=== PATIENT | female | born 1990 | race Two or more races ===

== ENCOUNTER 2019-09-30 11:17 | Outpatient (CLI) | payer MEDICAID | END 2019-09-30 11:18 | disposition home or self-care (01) | LOC: LAB 11:17 | PROVIDERS: ATTEND Midwife | DX: O98.419 Viral hepatitis complicating pregnancy, unspecified trimester (principal); Z3A.00 Weeks of gestation of pregnancy not specified | CPT/HCPCS: 36415; 86317 ==

== ENCOUNTER 2019-10-14 11:33 | Outpatient (CLI) | payer MEDICAID | END 2019-10-14 11:34 | disposition home or self-care (01) | LOC: LAB 11:33 | PROVIDERS: ATTEND Midwife | DX: O98.419 Viral hepatitis complicating pregnancy, unspecified trimester (principal); Z3A.00 Weeks of gestation of pregnancy not specified | CPT/HCPCS: 81599; 87517 ==

== ENCOUNTER 2019-12-02 09:00 | Outpatient (CLI) | payer MEDICAID ==
--- NOTE | 2019-12-02 11:08 | Ultrasound Report ---
Reason: F/U FOR LOW LYING PLACENTA AT 20 WKS Procedure Date: 12/02/2019 Accession Number: [id number] / [id number] Procedure: US - OB F/U or Repeat CPT Code: Final Report FULL RESULT: EXAM: FOLLOW-UP OBSTETRICAL ULTRASOUND EXAM DATE: 12/02/2019 09:16 AM. CLINICAL HISTORY: Low-lying placenta at 20 weeks, follow-up imaging. COMPARISON: None. TECHNIQUE: Real-time sonographic evaluation of the fetus performed by the banquet steward. Multiple circulation representative static images were saved for review. DATING: Established EGA 35 weeks 3 days with VITA 01/03/2020 based on working due date. GENERAL EVALUATION [place] . Cardiac activity: 136 bpm. movement: Visualized. Presentation: Cephalic. Placenta: Posterior and to the right position. Amniotic fluid: Normal. VINH 8.2 cm. MVP 3.1 cm. MATERNAL STRUCTURES While overall evaluation of the placenta is somewhat limited by the advanced gestational age, the margin of the placenta is clearly multiple centimeters away from the endocervical os, on real-time imaging estimated to be at least 10 cm distance. IMPRESSION: 1. Whitaker live intrauterine with gestational age 35 weeks 3 days based on working due date. 2. Normally positioned posterior placenta to the right. No sonographic evidence of marginal placenta or placenta previa. RADIA
== END 2019-12-02 09:01 | disposition home or self-care (01) ==
LOC: DI 09:00
PROVIDERS: ATTEND Midwife
DX: O44.43 Low lying placenta NOS or without hemorrhage, third trimester (principal)
CPT/HCPCS: 76816

== ENCOUNTER 2020-08-30 15:23 | Emergency (ER) | payer MEDICAID ==
--- NOTE | 2020-08-30 15:40 | ED Physician Documentation ---
PD HPI FEMALE - Stated complaint Stated Complaint: FEMALE - Chief complaint Chief Complaint: Abd Pain - History obtained from History obtained from: Patient - History of Present Illness Timing - onset: How many days ago (1-2 days of some vaginal spotting, teaspoon amount or so a few times. Started with lower abd/RLQ pelvic cramping today.) Timing - duration: Days Timing - details: Abrupt onset, Intermittant Associated symptoms: Vaginal bleeding (spotting for couple days). No: Fever, Vaginal discharge, Dysuria Contributing factors: (home preg test positive. LMP 5w4d ago.), Sexually active. 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 denies: Nausea, Vomiting, Diarrhea : reports: Vaginal bleeding, Now EGA (5w4d by dates of LMP). denies: Dysuria, Frequency, Discharge Musculoskeletal: denies: Back pain Neurologic: denies: Generalized weakness, Near syncope PD PAST MEDICAL HISTORY - Past Medical History Past Medical History: No - Allergies Allergies/Adverse Reactions: Allergies Allergy/AdvReac Type Severity Reaction Status Date / Time No Known Drug Allergies Allergy Verified 08/30/20 15:34 PD ED PE NORMAL - Vitals Vital signs reviewed: Yes - General General: Alert and oriented X 3, No acute distress, Well developed/nourished - Cardiac Cardiac: RRR, No murmur - Respiratory Respiratory: Clear bilaterally - Abdomen Abdomen: Normal bowel sounds, Soft, Non distended, No organomegaly, Other (some tenderness without guarding RLQ and suprapubic area. No percussion tenderness. ) - Female Female : Deferred - Back Back: No CVA TTP - Derm Derm: Normal color, Warm and dry - Neuro Neuro: Alert and oriented X 3, No motor deficit, Normal speech Results - Vitals Vitals: Vital Signs - 24 hr 08/30/20 08/30/20 08/30/20 15:30 17:34 19:00 Temperature 36.8 C Heart Rate 91 60 66 Respiratory 18 19 19 Rate Blood Pressure 119/66 108/64 108/73 O2 Saturation 100 100 100 08/30/20 20:15 Temperature 36.8 C Heart Rate 80 Respiratory 18 Rate Blood Pressure 110/60 O2 Saturation 99 Oxygen O2 Source Room air - Labs Labs: Laboratory Tests 08/30/20 08/30/20 08/30/20 15:40 16:22 16:22 WBC 5.2 RBC 4.49 Hgb 13.7 Hct 40.2 MCV 89.5 MCH 30.5 MCHC 34.1 RDW 12.8 Plt Count 203 MPV 9.9 Neut # (Auto) 3.5 Lymph # (Auto) 1.3 L [place] # (Auto) 0.4 Eos # (Auto) 0.1 Baso # (Auto) 0.0 Absolute Nucleated RBC 0.00 Nucleated RBC % 0.0 HCG, Quant Urine Color YELLOW Urine Clarity CLEAR Urine pH 7.0 Ur Specific [place] 1.015 Urine Protein NEGATIVE Urine Glucose (UA) NEGATIVE Urine Ketones NEGATIVE Urine Occult Blood NEGATIVE Urine Nitrite NEGATIVE Urine Bilirubin NEGATIVE Urine Urobilinogen 0.2 (NORMAL) Ur Leukocyte Esterase NEGATIVE Ur Microscopic Review NOT INDICATED Urine Culture Comments NOT INDICATED Blood Type A POSITIVE 08/30/20 16:22 WBC RBC Hgb Hct MCV MCH MCHC RDW Plt Count MPV Neut # (Auto) Lymph # (Auto) [place] # (Auto) Eos # (Auto) Baso # (Auto) Absolute Nucleated RBC Nucleated RBC % HCG, Quant 1948.00 Urine Color Urine Clarity Urine pH Ur Specific [place] Urine Protein Urine Glucose (UA) Urine Ketones Urine Occult Blood Urine Nitrite Urine Bilirubin Urine Urobilinogen Ur Leukocyte Esterase Ur Microscopic Review Urine Culture Comments Blood Type PD MEDICAL DECISION MAKING - ED course Complexity details: reviewed results (U/S showing no IUP and adnexal mass most concerning for ectopic . Will get DISABILITIES CAREGIVER consultation.), re-evaluated patient, considered differential (early with spotting and now also RLQ/low abd pain. Will get U/S to ensure IUP and eval for pelvic bleeding.), d/w patient, d/w group segment consultant (Dr. Le to come to ED and talk with patient. ) Departure - Departure Disposition: 01 Home, Self Care Clinical Impression: Ectopic without intrauterine Condition: Stable Record reviewed to determine appropriate education?: Yes Instructions: ED Abdominal Pain Rule Out Ectopic Comments: Your is very early. At this point in time, your hormone level is appropriate for your stage of , but no is visible within the uterus. There is a complex tissue mass near the your right ovary that is concerning for a possible ectopic , but it is not entirely clear whether this is truly an ectopic or not. It is possible that this is a complex ovarian cyst, possibly related to the , and that your is in the uterus but just too early to see at this time. As such, you will need to follow-up with your hydrometer finisher, as you have discussed with Dr. Le, our on- call petroleum inspector sushila. You should see Kimberly Morrell at [facility] In 2 days for a repeat hormone level check. Please call first thing tomorrow to set up this appointment. If you develop severe pain, heavy bleeding, or fainting/near-fainting, you should return to the emergency department without delay. Discharge Date/Time: 08/30/20 20:15
[2020-08-30] MEDS ORDERED: KETOROLAC 15 MG/ML VIAL IVP STA (15:55)
[2020-08-30] MEDS ORDERED: KETOROLAC 30 MG/ML VIAL IVP STA (15:58)
[2020-08-30] MEDS ORDERED: SODIUM CHLORIDE 0.9% 1,000 ML IV STA (16:00)
[2020-08-30 16:25] LABS: BILIRUBIN,URINE NEGATIVE (NEGATIVE); GLUCOSE, URINE (UA) NEGATIVE (NEGATIVE); KETONES,URINE (UA) NEGATIVE (NEGATIVE); LEUKOCYTE ESTERASE, URINE NEGATIVE (NEGATIVE); NITRITE,URINE NEGATIVE (NEGATIVE); OCCULT BLOOD,URINE NEGATIVE (NEGATIVE); PROTEIN,URINE NEGATIVE (NEGATIVE); UROBILINOGEN,URINE 0.2 (NORMAL) E.U./dL (NORMAL)
[2020-08-30 16:27] LABS: CLARITY,URINE CLEAR (CLEAR)
[2020-08-30 16:33] LABS: BASOPHILS % (AUTO) 0.6 %; EOSINOPHILS # (AUTO) 0.1 10^3/uL (0.0-0.7); EOSINOPHILS % (AUTO) 1.1 %; HGB - HEMOGLOBIN 13.7 g/dL (12.0-16.0); LYMPHOCYTES # (AUTO) 1.3 10^3/uL (1.5-3.5); LYMPHOCYTES % (AUTO) 24.1 %; MEAN CORPUSCULAR HEMOGLOBIN 30.5 pg (27.0-31.0); MEAN CORPUSCULAR HGB CONC 34.1 g/dL (32.0-36.0); MEAN CORPUSCULAR VOLUME 89.5 fL (81.0-99.0); MEAN PLATELET VOLUME 9.9 fL (7.9-10.8); MONOCYTES # (AUTO) 0.4 10^3/uL (0.0-1.0); MONOCYTES % (AUTO) 6.7 %; NEUTROPHILS # (AUTO) 3.5 10^3/uL (1.5-6.6); NEUTROPHILS % (AUTO) 67.1 %; PLT - PLATELET COUNT 203 10^3/uL (130-450); RED BLOOD COUNT 4.49 10^6/uL (4.20-5.40); RED CELL DISTRIBUTION WIDTH 12.8 % (12.0-15.0); WHITE BLOOD COUNT 5.2 x10^3/uL (4.8-10.8)
--- NOTE | 2020-08-30 19:30 | Ultrasound Report ---
PROCEDURE: OB First Trimester INDICATIONS: early ; RLQ abd pain OUTSIDE/PRIOR DATING DATA: Last menstrual period (LMP): 07/22/2020. LMP-based estimated date of delivery (VITA): 04/28/2021. First dating scan (date and location): 08/30/2020. Estimated date of delivery (VITA) from first dating scan: Not applicable. TECHNIQUE: Real-time scanning was performed of the fetus and maternal pelvic organs, with image documentation. COMPARISON: None. FINDINGS: No intrauterine gestational sac visualized. Quantitative hCG level measured 1947. No decidual reactio n noted. Small nabothian cyst visualized near the cervix. Small amount of endometrial fluid noted danii r the fundus. There are 2 complex cysts versus mass noted in the right ovary/adnexa. Ring of fire appearance surrou nding this finding. Left ovary is unremarkable in appearance. Visualized portions of the bilateral kidneys appear unremarkable without hydronephrosis. Trace amount of free fluid in the posterior cul-de-sac. No sonographic evidence of hemoperitoneum. IMPRESSION: Two complicated cysts versus mass noted in the right ovary/adnexa which may represent a corpus luteal cyst versus ectopic . No sonographic evidence to suggest rupture at this time. Borderline b eta hCG level to expect visualization of an intrauterine gestational sac. An early normal intrauterin e gestation cannot be completely excluded. Recommend continued clinical surveillance and serial quantitative hCG measurements to document expect ed rate of rise. Short interval follow-up imaging as needed. Findings were discussed with Dr. Carmona of the emergency Department staff at 1915 hours . Reviewed by: Ish Nur MD on 08/30/2020 7:29 PM PST Approved by: Ish Nur MD on 08/30/2020 7:29 PM PST Station ID: [id number]
--- NOTE | 2020-08-30 19:31 | Ultrasound Report ---
PROCEDURE: OB Transvaginal INDICATIONS: RLQ pain and vag bleeding. 5.4 wks preg OUTSIDE/PRIOR DATING DATA: Last menstrual period (LMP): 07/22/2020. LMP-based estimated date of delivery (VITA): 04/28/2021. First dating scan (date and location): 08/30/2020. Estimated date of delivery (VITA) from first dating scan: Not applicable. TECHNIQUE: Real-time transvaginal scanning was performed of the fetus and maternal pelvic organs, with image doc umentation. COMPARISON: None. FINDINGS: No intrauterine gestational sac visualized. Quantitative hCG level measured 1947. No decidual reactio n noted. Small nabothian cyst visualized near the cervix. Small amount of endometrial fluid noted danii r the fundus. There are 2 complex cysts versus mass noted in the right ovary/adnexa. Ring of fire appearance surrou nding this finding. Left ovary is unremarkable in appearance. Visualized portions of the bilateral kidneys appear unremarkable without hydronephrosis. Trace amount of free fluid in the posterior cul-de-sac. No sonographic evidence of hemoperitoneum. IMPRESSION: Two complicated cysts versus mass noted in the right ovary/adnexa which may represent a corpus luteal cyst versus ectopic . No sonographic evidence to suggest rupture at this time. Borderline b eta hCG level to expect visualization of an intrauterine gestational sac. An early normal intrauterin e gestation cannot be completely excluded. Recommend continued clinical surveillance and serial quantitative hCG measurements to document expect ed rate of rise. Short interval follow-up imaging as needed. Findings were discussed with Dr. Carmona of the emergency Department staff at 1915 hours . Reviewed by: Ish Nur MD on 08/30/2020 7:29 PM PST Approved by: Ish Nur MD on 08/30/2020 7:29 PM PST Station ID: [id number]
--- NOTE | 2020-08-30 20:14 | CONSULTATION NOTE ---
Referring Provider Name of Referring Provider:: Dr. Carmona Consult Date: 08/30/20 Chief Complaint - Chief Complaint Chief Complaint: of unknown location History of Present Illness - History Obtained From History obtained from: Patient and outside provider - History of Present Illness HPI Comment/Other: Patient is a 30 yo at 5w4d by LMP here with positive test and crmaping/spotting Patient is followed by [facility]. She is about 8 months s/p . She has a positive test and was having some spotting and mild cramping. No N/V. No active symptoms at present. Desired . LMP 07/22/2020 gives VITA 04/28/2020 HCG was 1948. Pelvic us was performed. No clear IUP was noted. There are two complex masses on the right ovary/adnexa that were read as possible corpus luteum cyst vs possible ectopic. Conclusion states that IUP canot be ruled out. PMH: s/f hepatitic C no medications. 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 Exam - Vital Signs Reviewed Vital Signs: Yes Vital Signs: Vital Signs x48h Temp Pulse Resp BP Pulse Ox 08/30/20 19:00 66 19 108/73 100 08/30/20 17:34 60 19 108/64 100 08/30/20 15:30 98.2 F 91 18 119/66 100 - Physical Exam General Appearance: positive: No acute distress Respiratory: positive: No respiratory distress Cardiovascular: positive: Other (RR) Peripheral Pulses: positive: 2+ Abdomen: positive: Non-tender, No distention, Other (soft, NT/ND. No guarding) Skin: positive: Color nml Extremities: positive: Non-tender, No pedal edema Neurologic/Psychiatric: positive: Oriented x3 Conclusion/Plan - Diagnosis Diagnosis: of unknown locations cannot rule out ectopic - Plan Plan: We had an extensive discussion regarding the us findings and HCG levels. Our primary concern is ectopic . Reviewed that ectopic pregnancies are not viable and can be life threatening to the patient. If caught early, they can be managed with methotrexate If caught later, certain characteristics of the may preclude medical management and surgery may be indicated If the fallopian tube should rupture, blood loss is rapid and high volume and can be potentially life threatening If were not desired, I would recommend methotrexate at this time. Patient declined as is desired. Recommend Q3day HCG levels and repeat us in one week. Patient is followed by [facility] and wants to follow with her provider at that facility. I called Kimberly Morrell CPM and reviewed patient scenario She has a benign presentation, HCG levels, US findings, and recommendations for follow-up Her outside provider has scheduled the patient for fu on Friday in their clinic for fu HCG levels We reviewed warning signs that warrant immediate return to the ED. Patient voiced understanding and her care plan has been confirmed with her primary OB provider. - Lab Results Fish Bones: 08/30/20 16:22
[2020-08-30 20:17] VITALS: BP 110/60
== END 2020-08-30 20:15 | disposition home or self-care (01) ==
LOC: ED 15:23
DX: O00.90 Unspecified ectopic pregnancy without intrauterine pregnancy (principal); Z3A.01 Less than 8 weeks gestation of pregnancy
CPT/HCPCS: 36415; 76801; 76817; 81001; 81003; 84702; 85025; 86900; 86901; 87086; 96374; 99284

== ENCOUNTER 2020-09-05 10:55 | Outpatient (CLI) | payer MEDICAID ==
--- NOTE | 2020-09-05 11:58 | Ultrasound Report ---
PROCEDURE: OB First Trimester w/TV INDICATIONS: 1ST TRIMESTER BLEEDING, DATING, VIABILITY OUTSIDE/PRIOR DATING DATA: Last menstrual period (LMP): 07/22/2020. LMP-based estimated date of delivery (VITA): 04/28/2021. First dating scan (date and location): 08/30/2020. Estimated date of delivery (VITA) from first dating scan: Not measured. See below. TECHNIQUE: Real-time scanning was performed of the fetus and maternal pelvic organs, with image documentation. Endovaginal scanning was also performed to better visualize the fetus and maternal ovaries. COMPARISON: 08/30/2020 FINDINGS: No intrauterine gestation is identified to include cardiac activity. No decidual reaction noted . Cervix appears closed. Nabothian cysts are again noted. Small amount of pelvic free fluid noted in the region of the right adnexa and posterior cul-de-sac. Maternal organs: The bilateral ovaries appear unremarkable. There is a collapsing right corpus luteal cyst measuring 2.2 x 1.6 x 1.7 cm. Previously seen possible second right ovarian/adnexal mass is no longer visualized. Limited images through the kidneys demonstrate no hydronephrosis. IMPRESSION: 1. No sonographic evidence for intrauterine gestation. 2. Collapsing 2.2 cm right corpus luteal cyst. Previously seen second right ovarian/adnexal mass is n o longer visualized. Given reported history of decreasing beta hCG levels and no expected progression of , findings may represent a missed spontaneous with ectopic much less likely. Recommend continued clinical and laboratory surveillance. Follow-up imaging as needed. Findings were reported to Mary Beth Ma by the cable maintainer at time of study completion. Reviewed by: Ish Nur MD on 09/05/2020 11:56 AM PST Approved by: Ish Nur MD on 09/05/2020 11:56 AM PST Station ID: [id number]
== END 2020-09-05 10:56 | disposition home or self-care (01) ==
LOC: DI 10:55
PROVIDERS: ATTEND Midwife
DX: N83.11 Corpus luteum cyst of right ovary (principal)
CPT/HCPCS: 76801; 76817

== ENCOUNTER 2020-09-17 14:46 | Day surgery (SDC) | payer MEDICAID ==
[2020-09-17] MEDS ORDERED: ONDANSETRON 4 MG/2 ML VIAL IVP STA (15:10)
[2020-09-17] MEDS ORDERED: HYDROmorphone 1 MG/ML CARPUJECT IVP STA ×3 (15:10→17:35)
--- NOTE | 2020-09-17 15:12 | ED Physician Documentation ---
PD HPI FEMALE - Stated complaint Stated Complaint: PELVIC PX - Chief complaint Chief Complaint: General - History obtained from History obtained from: Patient - Additional information Additional information: with recent presumed miscarriage. She was seen here on the for bleeding. She had an ultrasound at that time showing right adnexal mass which was concerning for an ectopic but subsequent ultrasound showed that that had resolved. No IUP was ever seen. Her beta-hCG on 30 August was 1948. She says she had it done at an outpatient clinic 2 days later and was around 1700. She was continuing to bleed but not heavy but over the last day has developed severe pelvic pain like a constant contraction associated with dysuria. Mild low back pain. No fever. She is nauseous. 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 : None HEENT: None Psych: None Musculoskeletal: None Derm: None - Past Surgical History Past Surgical History: No - Allergies Allergies/Adverse Reactions: Allergies Allergy/AdvReac Type Severity Reaction Status Date / Time No Known Drug Allergies Allergy Verified 08/30/20 15:34 - Social History Does the pt smoke?: No Smoking Status: Never smoker Does the pt drink ETOH?: No Does the pt have substance abuse?: No - Immunizations Immunizations are current?: Yes PD ED PE NORMAL - Vitals Vital signs reviewed: Yes - General General: Alert and oriented X 3 (She appears uncomfortable and in pain) - Abdomen Abdomen: Normal bowel sounds, Soft, Other (Tenderness in the central anterior pelvis without surgical signs) - Back Back: No CVA TTP, No spinal TTP - Derm Derm: Normal color, Warm and dry - Extremities Extremities: No edema, No calf tenderness / cord - Neuro Neuro: Alert and oriented X 3, Normal speech - Psych Psych: Normal mood, Normal affect Results - Vitals Vitals: Vital Signs - 24 hr 09/17/20 09/17/20 09/17/20 14:48 15:08 17:00 Temperature 36.9 C 36.9 C 37.4 C Heart Rate 106 H 106 H 85 Respiratory 20 20 20 Rate Blood Pressure 96/67 96/67 108/79 O2 Saturation 100 100 98 09/17/20 19:00 Temperature 36.6 C Heart Rate 80 Respiratory 22 Rate Blood Pressure 105/66 O2 Saturation 98 Oxygen O2 Source Room air - Labs Labs: Laboratory Tests 09/17/20 09/17/20 09/17/20 14:55 15:15 15:15 WBC 10.0 RBC 4.12 L Hgb 12.5 Hct 37.0 MCV 89.8 MCH 30.3 MCHC 33.8 RDW 12.8 Plt Count 209 MPV 9.3 Neut # (Auto) 9.2 H Lymph # (Auto) 0.5 L [place] # (Auto) 0.3 Eos # (Auto) 0.0 Baso # (Auto) 0.0 Absolute Nucleated RBC 0.00 Nucleated RBC % 0.0 Sodium Potassium Chloride Carbon Dioxide Anion Gap BUN Creatinine Estimated GFR (MDRD) Glucose Calcium Total Bilirubin AST ALT Alkaline Phosphatase Total Protein Albumin HCG, Quant Urine Color YELLOW Urine Clarity HAZY Urine pH 8.0 H Ur Specific [place] 1.025 Urine Protein NEGATIVE Urine Glucose (UA) NEGATIVE Urine Ketones 15 H Urine Occult Blood SMALL H Urine Nitrite NEGATIVE Urine Bilirubin NEGATIVE Urine Urobilinogen 2 H Ur Leukocyte Esterase NEGATIVE Urine RBC 6-10 H Urine WBC 0-3 Ur Squamous Epith Cells FEW Squamous Amorphous Sediment Few Urine Bacteria Few Ur Microscopic Review INDICATED Urine Culture Comments NOT INDICATED Nasal Adenovirus (PCR) Nasal B. parapertussis DNA (PCR) Nasal Coronavir 229E PCR Nasal Coronavir HKU1 PCR Nasal Coronavir NL63 PCR Nasal Coronavir OC43 PCR Nasal Enterovir/Rhinovir PCR Nasal Influenza B PCR Nasal Influenza A PCR Nasal Parainfluen 1 PCR Nasal Parainfluen 2 PCR Nasal Parainfluen 3 PCR Nasal Parainfluen 4 PCR Nasal RSV (PCR) Nasal B.pertussis DNA PCR Nasal C.pneumoniae (PCR) Adis Human Metapneumo PCR Nasal M.pneumoniae (PCR) Nasal SARS-CoV-2 (PCR) Blood Type A POSITIVE Antibody Screen NEGATIVE Crossmatch IS Only See Detail 09/17/20 09/17/20 09/17/20 15:15 15:15 15:15 WBC RBC Hgb Hct MCV MCH MCHC RDW Plt Count MPV Neut # (Auto) Lymph # (Auto) [place] # (Auto) Eos # (Auto) Baso # (Auto) Absolute Nucleated RBC Nucleated RBC % Sodium 136 Potassium 3.6 Chloride 101 Carbon Dioxide 24 Anion Gap 11.0 BUN 11 Creatinine 0.7 Estimated GFR (MDRD) 98 Glucose 131 H Calcium 9.2 Total Bilirubin 1.3 H AST 15 ALT 16 Alkaline Phosphatase 58 Total Protein 7.5 Albumin 4.7 HCG, Quant 1092.98 Urine Color Urine Clarity Urine pH Ur Specific [place] Urine Protein Urine Glucose (UA) Urine Ketones Urine Occult Blood Urine Nitrite Urine Bilirubin Urine Urobilinogen Ur Leukocyte Esterase Urine RBC Urine WBC Ur Squamous Epith Cells Amorphous Sediment Urine Bacteria Ur Microscopic Review Urine Culture Comments Nasal Adenovirus (PCR) Nasal B. parapertussis DNA (PCR) Nasal Coronavir 229E PCR Nasal Coronavir HKU1 PCR Nasal Coronavir NL63 PCR Nasal Coronavir OC43 PCR Nasal Enterovir/Rhinovir PCR Nasal Influenza B PCR Nasal Influenza A PCR Nasal Parainfluen 1 PCR Nasal Parainfluen 2 PCR Nasal Parainfluen 3 PCR Nasal Parainfluen 4 PCR Nasal RSV (PCR) Nasal B.pertussis DNA PCR Nasal C.pneumoniae (PCR) Adis Human Metapneumo PCR Nasal M.pneumoniae (PCR) Nasal SARS-CoV-2 (PCR) Blood Type Antibody Screen Crossmatch IS Only 09/17/20 18:45 WBC RBC Hgb Hct MCV MCH MCHC RDW Plt Count MPV Neut # (Auto) Lymph # (Auto) [place] # (Auto) Eos # (Auto) Baso # (Auto) Absolute Nucleated RBC Nucleated RBC % Sodium Potassium Chloride Carbon Dioxide Anion Gap BUN Creatinine Estimated GFR (MDRD) Glucose Calcium Total Bilirubin AST ALT Alkaline Phosphatase Total Protein Albumin HCG, Quant Urine Color Urine Clarity Urine pH Ur Specific [place] Urine Protein Urine Glucose (UA) Urine Ketones Urine Occult Blood Urine Nitrite Urine Bilirubin Urine Urobilinogen Ur Leukocyte Esterase Urine RBC Urine WBC Ur Squamous Epith Cells Amorphous Sediment Urine Bacteria Ur Microscopic Review Urine Culture Comments Nasal Adenovirus (PCR) NOT DETECTED Nasal B. parapertussis DNA (PCR) NOT DETECTED Nasal Coronavir 229E PCR NOT DETECTED Nasal Coronavir HKU1 PCR NOT DETECTED Nasal Coronavir NL63 PCR NOT DETECTED Nasal Coronavir OC43 PCR NOT DETECTED Nasal Enterovir/Rhinovir PCR NOT DETECTED Nasal Influenza B PCR NOT DETECTED Nasal Influenza A PCR NOT DETECTED Nasal Parainfluen 1 PCR NOT DETECTED Nasal Parainfluen 2 PCR NOT DETECTED Nasal Parainfluen 3 PCR NOT DETECTED Nasal Parainfluen 4 PCR NOT DETECTED Nasal RSV (PCR) NOT DETECTED Nasal B.pertussis DNA PCR NOT DETECTED Nasal C.pneumoniae (PCR) NOT DETECTED Adis Human Metapneumo PCR NOT DETECTED Nasal M.pneumoniae (PCR) NOT DETECTED Nasal SARS-CoV-2 (PCR) NOT DETECTED Blood Type Antibody Screen Crossmatch IS Only PD MEDICAL DECISION MAKING - ED course ED course: Given the very slow drop in the beta-hCG and the initial report on the ultrasound which demonstrated large ovaries and some free fluid I called the SERVICE LIAISON REPRESENTATIVE inbound sales consultant, Dr. Xavier who came and saw the patient and feels that this patient probably has a ruptured and slowly bleeding ectopic and plans to take her to the OR. Before the OR patient had a syncopal episode without injury in the bathroom. She was unconscious for a solid couple of minutes and was placed back in bed and in Trendelenburg and she came back around. IV fluids were done and transfer to the OR was expedited. Departure - Departure Disposition: ED Transfer to [facility] Clinical Impression: Ectopic without intrauterine Qualifiers: Location of ectopic : unspecified location Qualified Code(s): O00.90 - Unspecified ectopic without intrauterine Condition: Stable Discharge Date/Time: 09/17/20 19:18
[2020-09-17 15:27] LABS: BASOPHILS % (AUTO) 0.3 %; EOSINOPHILS % (AUTO) 0.1 %; HGB - HEMOGLOBIN 12.5 g/dL (12.0-16.0); LYMPHOCYTES # (AUTO) 0.5 10^3/uL (1.5-3.5); LYMPHOCYTES % (AUTO) 5.1 %; MEAN CORPUSCULAR HEMOGLOBIN 30.3 pg (27.0-31.0); MEAN CORPUSCULAR HGB CONC 33.8 g/dL (32.0-36.0); MEAN CORPUSCULAR VOLUME 89.8 fL (81.0-99.0); MEAN PLATELET VOLUME 9.3 fL (7.9-10.8); MONOCYTES # (AUTO) 0.3 10^3/uL (0.0-1.0); MONOCYTES % (AUTO) 2.5 %; NEUTROPHILS # (AUTO) 9.2 10^3/uL (1.5-6.6); NEUTROPHILS % (AUTO) 91.7 %; PLT - PLATELET COUNT 209 10^3/uL (130-450); RED BLOOD COUNT 4.12 10^6/uL (4.20-5.40); RED CELL DISTRIBUTION WIDTH 12.8 % (12.0-15.0)
[2020-09-17 15:35] LABS: CALCIUM 9.2 mg/dL (8.5-10.3); CREATININE 0.7 mg/dL (0.4-1.0)
[2020-09-17 15:57] LABS: BILIRUBIN,URINE NEGATIVE (NEGATIVE); GLUCOSE, URINE (UA) NEGATIVE (NEGATIVE); KETONES,URINE (UA) 15 mg/dL (NEGATIVE); LEUKOCYTE ESTERASE, URINE NEGATIVE (NEGATIVE); NITRITE,URINE NEGATIVE (NEGATIVE); OCCULT BLOOD,URINE SMALL (NEGATIVE); PROTEIN,URINE NEGATIVE (NEGATIVE); UROBILINOGEN,URINE 2 E.U./dL (NORMAL)
[2020-09-17 16:10] LABS: CLARITY,URINE HAZY (CLEAR)
[2020-09-17 16:31] LABS: AMORPHOUS SEDIMENT,UR Few /LPF; BACTERIA,URINE Few /HPF (None Seen); SQUAMOUS EPITHELIAL CELL,UR FEW Squamous (<= Few)
--- NOTE | 2020-09-17 17:42 | Ultrasound Report ---
PROCEDURE: OB First Trimester INDICATIONS: pelvic pain OUTSIDE/PRIOR DATING DATA: Last menstrual period (LMP): 07/22/2020. LMP-based estimated date of delivery (VITA): 04/28/2021. First dating scan (date and location): 08/30/2020. Estimated date of delivery (VITA) from first dating scan: Not applicable. TECHNIQUE: Real-time scanning was performed of the fetus and maternal pelvic organs, with image documentation. COMPARISON: 08/30/2020, 09/05/2020 FINDINGS: Embryo: No findings of an intrauterine can be seen. Measurement variability in dating: +/- 4 weeks by LMP, +/- 7 days by mean sac diameter (use before 6 weeks gestation if crown-rump length not able to be measured), +/- 5 days by crown-rump length (6-12 weeks gestation). Maternal organs: Both ovaries are enlarged, with heterogeneous components, right larger than left. Th e right ovary measures 8.4 x 7.4 x 8.7 cm. The left ovary measures 7 x 9.7 x 5.7 cm. A lower uterine segment nabothian cyst can be seen measuring 1.3 cm, with internal debris. Limited images through t he kidneys demonstrate no hydronephrosis. IMPRESSION: No intrauterine is seen. In this patient with a given beta-hCG of greater than 1000, this i s most likely related to a resolving spontaneous miscarriage. Ectopic is possible, yet cons idered to be less likely. No findings of a molar are seen. Enlarged, abnormal ovaries are seen. Note: Concordant preliminary findings given by the test engineering manager upon the completion of the examination to Dr. Earl at 5:20 PM on 09/17/2020. Reviewed by: Esequiel Caruso MD on 09/17/2020 4:41 PM AKST Approved by: Esequiel Caruso MD on 09/17/2020 4:41 PM AKST Station ID: [id number]
--- NOTE | 2020-09-17 17:47 | Ultrasound Report ---
PROCEDURE: OB Transvaginal INDICATIONS: pelvic pain OUTSIDE/PRIOR DATING DATA: Last menstrual period (LMP): 07/22/2020. LMP-based estimated date of deliv jania (VITA): 04/28/2021. First dating scan (date and location): 08/30/2020. Estimated date of delivery ( VITA) from first dating scan: Not applicable. TECHNIQUE: Real-time scanning was performed of the fetu s and maternal pelvic organs, with image documentation. COMPARISON: 08/30/2020, 09/05/2020 FINDINGS: Embryo: No findings of an intrauterine can be seen. Measurement variability in dating: +/- 4 weeks by LMP, +/- 7 days by mean sac diameter (use before 6 weeks gestation if crown-ru mp length not able to be measured), +/- 5 days by crown-rump length (6-12 weeks gestation). Maternal organs: Both ovaries are enlarged, with heterogeneous components, right larger than left. The right ovary measures 8.4 x 7.4 x 8.7 cm. The left ovary measures 7 x 9.7 x 5.7 cm. A lower uterine segment nabothian cyst can be seen measuring 1.3 cm, with internal debris. Limited images through the kidneys demonstrate no hydronephrosis. IMPRESSION: No intrauterine is seen. In this patient with a given beta-hCG of greater than 1000, this is most likely related to a resolving spontaneous miscarriage. Ectopic is possi ble, yet considered to be less likely. No findings of a molar are seen. Enlarged, abnormal ovaries are seen. Note: Concordant preliminary findings given by the harness worker upon the completion of the examination to Dr. Earl at 5:20 PM on 09/17/2020. Reviewed by: Esequiel Caruso MD on 09/17/2020 4:46 PM AKST Approved by: Esequiel Caruso MD on 09/17/2020 4:46 PM AKST Station ID: [id number]
--- NOTE | 2020-09-17 18:15 | HISTORY & PHYSICAL EXAMINATION ---
HPI - Admitted From Admitted from: ED - History Obtained From Records Reviewed: Old records reviewed History obtained from: Patient - History of Present Illness HPI Comment/Other: with recent presumed miscarriage. She was seen here on the for bleeding. She had an ultrasound at that time showing right adnexal mass which was concerning for an ectopic but subsequent ultrasound showed that that had resolved. No IUP was ever seen. Her beta-hCG on 30 August was 1949. She says she had it done at an outpatient clinic 2 days later and was around 1700. She was continuing to bleed but not heavy but over the last day has developed severe pelvic pain like a constant contraction associated with dysuria. Mild low back pain. No fever. She is nauseous but no vomiting. Today woke at 0900 and it was severe, had to double over with walking. Then improved a bit with rest, then flared to severe again at 11:00. Decided to come to the ER. Bumps in the car on the way over hurt. PMH: current nicotine user, Hep C PSH: neg Allergies: NKDA Meds: midol PRN cramping FH: no anesthesia complications SH: no alcohol or drugs. Current vaper. 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 ROS: no fevers, cough, hematuria, or covid exposure. 10 systems negative. PMH/PSH - Past Medical History Cardiovascular: positive: None Respiratory: positive: None Neuro: positive: None Endocrine/Autoimmune: positive: None GI: positive: Hepatitis (Hep c) [employer]: positive: None : positive: None HEENT: positive: None Psych: positive: None Musculoskeletal: positive: None Derm: positive: None MRSA Hx?: No Social & Family Hx - Social History Does the pt smoke?: No Smoking Status: Never smoker Does the pt drink ETOH?: No Does the pt have substance abuse?: No Meds/Allgy - Allergies Allergies/Adverse Reactions: Allergies Allergy/AdvReac Type Severity Reaction Status Date / Time No Known Drug Allergies Allergy Verified 08/30/20 15:34 Exam - Vital Signs Vital Signs: Vital Signs x48h Temp Pulse Resp BP Pulse Ox 09/17/20 17:00 99.3 F 85 20 108/79 98 09/17/20 15:08 98.4 F 106 H 20 96/67 100 09/17/20 14:48 98.5 F 106 H 20 96/67 100 Alert, grimacing, writhing, grabbing abdomen EOM normal Head atraumatic normocephalic Cor RRR no murmurs Lungs CTA bilat Abdominal exam not repeated by me, was very tender with ER MD. Rebound present. No LE edema. My US review 09/17/20: enlarged right and left ovaries largely replaced by a complex adnexal masses. No identified. Uterus is empty with a homogeneous endometrium 4mm. Free fluid present surrounding liver. Radiologist read: no IUP most likely due to a resolving miscarriage. Enlarged abnormal ovaries seen (8cm). No comment about free fluid. HCG 1092 US 09/05/20 Endometrium still plump. Right ov cyst appears to be a collapsing theca luteal cyst. Left ovary is normal. US 08/30/20: No identified. Uterus with a plump endometrium and a fluid filled area likely c/w a gestational sac. Poss small complex right ov mass vs. a 1.8cm mass adjacent to the ovary. Left ovary small and normal. HCG 1949 Results - Lab Results Fish Bones: 09/17/20 15:15 09/17/20 15:15 Other Lab Results: Lab Results x24hrs 09/17/20 09/17/20 09/17/20 Range/Units 15:15 15:15 15:15 WBC 10.0 (4.8-10.8) x10^3/uL RBC 4.12 L (4.20-5.40) 10^6/uL Hgb 12.5 (12.0-16.0) g/dL Hct 37.0 (37.0-47.0) % MCV 89.8 (81.0-99.0) fL MCH 30.3 (27.0-31.0) pg MCHC 33.8 (32.0-36.0) g/dL RDW 12.8 (12.0-15.0) % Plt Count 209 (130-450) 10^3/uL MPV 9.3 (7.9-10.8) fL Neut # (Auto) 9.2 H (1.5-6.6) 10^3/uL Lymph # (Auto) 0.5 L (1.5-3.5) 10^3/uL [place] # (Auto) 0.3 (0.0-1.0) 10^3/uL Eos # (Auto) 0.0 (0.0-0.7) 10^3/uL Baso # (Auto) 0.0 (0.0-0.1) 10^3/uL Absolute Nucleated RBC 0.00 x10^3/uL Nucleated RBC % 0.0 /100WBC Sodium 136 (135-145) mmol/L Potassium 3.6 (3.5-5.0) mmol/L Chloride 101 (101-111) mmol/L Carbon Dioxide 24 (21-32) mmol/L Anion Gap 11.0 (6-13) BUN 11 (6-20) mg/dL Creatinine 0.7 (0.4-1.0) mg/dL Estimated GFR (MDRD) 98 (>89) Glucose 131 H (70-100) mg/dL Calcium 9.2 (8.5-10.3) mg/dL HCG, Quant 1092.98 mIU/mL Urine Color Urine Clarity (CLEAR) Urine pH (5.0-7.5) PH Ur Specific [place] (1.002-1.030) Urine Protein (NEGATIVE) mg/dL Urine Glucose (UA) (NEGATIVE) mg/dL Urine Ketones (NEGATIVE) mg/dL Urine Occult Blood (NEGATIVE) Urine Nitrite (NEGATIVE) Urine Bilirubin (NEGATIVE) Urine Urobilinogen (NORMAL) E.U./dL Ur Leukocyte Esterase (NEGATIVE) Urine RBC (0-5) /HPF Urine WBC (0-5) /HPF Ur Squamous Epith Cells (<= Few) Amorphous Sediment /LPF Urine Bacteria (None Seen) /HPF Ur Microscopic Review Urine Culture Comments Blood Type Antibody Screen 09/17/20 09/17/20 Range/Units 15:15 14:55 WBC (4.8-10.8) x10^3/uL RBC (4.20-5.40) 10^6/uL Hgb (12.0-16.0) g/dL Hct (37.0-47.0) % MCV (81.0-99.0) fL MCH (27.0-31.0) pg MCHC (32.0-36.0) g/dL RDW (12.0-15.0) % Plt Count (130-450) 10^3/uL MPV (7.9-10.8) fL Neut # (Auto) (1.5-6.6) 10^3/uL Lymph # (Auto) (1.5-3.5) 10^3/uL [place] # (Auto) (0.0-1.0) 10^3/uL Eos # (Auto) (0.0-0.7) 10^3/uL Baso # (Auto) (0.0-0.1) 10^3/uL Absolute Nucleated RBC x10^3/uL Nucleated RBC % /100WBC Sodium (135-145) mmol/L Potassium (3.5-5.0) mmol/L Chloride (101-111) mmol/L Carbon Dioxide (21-32) mmol/L Anion Gap (6-13) BUN (6-20) mg/dL Creatinine (0.4-1.0) mg/dL Estimated GFR (MDRD) (>89) Glucose (70-100) mg/dL Calcium (8.5-10.3) mg/dL HCG, Quant mIU/mL Urine Color YELLOW Urine Clarity HAZY (CLEAR) Urine pH 8.0 H (5.0-7.5) PH Ur Specific [place] 1.025 (1.002-1.030) Urine Protein NEGATIVE (NEGATIVE) mg/dL Urine Glucose (UA) NEGATIVE (NEGATIVE) mg/dL Urine Ketones 15 H (NEGATIVE) mg/dL Urine Occult Blood SMALL H (NEGATIVE) Urine Nitrite NEGATIVE (NEGATIVE) Urine Bilirubin NEGATIVE (NEGATIVE) Urine Urobilinogen 2 H (NORMAL) E.U./dL Ur Leukocyte Esterase NEGATIVE (NEGATIVE) Urine RBC 6-10 H (0-5) /HPF Urine WBC 0-3 (0-5) /HPF Ur Squamous Epith Cells FEW Squamous (<= Few) Amorphous Sediment Few /LPF Urine Bacteria Few (None Seen) /HPF Ur Microscopic Review INDICATED Urine Culture Comments NOT INDICATED Blood Type A POSITIVE Antibody Screen NEGATIVE Impression/Plan - Problem List Problem List: 30yo at 8w1d by LMP of 07/22 giving VITA of 04/28 with likely ruptured ectopic vs. adnexal torsion in setting of ectopic . This is a confusing picture as both ovaries are enlarged with a complex internal appearance. Pt is in 07/22 pain with rebound. Free fluid is present around the liver. So ultimately needs surgical evaluation and hopeful treatment. Pt was counseled for diagnostic laparoscopy with evacuation of blood, possible removal of fallopian tube, possible removal of ovary. Will do a D&C as well with the confusing clinical picture. HCG is 1000 so I doubt that this is an ovarian response to a molar . Discussed risks including but not limited to bleeding, infection, trauma to local organs, anesthesia complicaitons, and failure to completely treat the abnormal . Recovery briefly reviewed. All questions answered and consent signed. Pt's partner was called and updated.
[2020-09-17 18:31] LABS: ALBUMIN 4.7 g/dL (3.2-5.5); BILIRUBIN,TOTAL 1.3 mg/dL (0.2-1.0); TOTAL PROTEIN 7.5 g/dL (6.7-8.2)
--- NOTE | 2020-09-17 18:39 | ANESTHESIA ---
Pre-Anesthesia VS, & Labs - Diagnosis ectopic - Procedure laparoscopic salpingectomy Vital Signs: Temp Pulse Resp BP Pulse Ox 37.4 C 85 20 108/79 98 09/17/20 17:00 09/17/20 17:00 09/17/20 17:00 09/17/20 17:00 09/17/20 17:00 Height: 5 ft 9 in Weight (kg): 72.575 kg Body Mass Index: 23.6 BMI Classification: Healthy weight - NPO Other Last Food Intake: 1400, 2 bites banana - Is Patient ?: Yes Comments:: ectopic - Lab Results Current Lab Results: Laboratory Tests 09/17/20 15:15: Total Bilirubin 1.3 H, AST 15, ALT 16, Alkaline Phosphatase 58, Total Protein 7.5, Albumin 4.7 09/17/20 15:15: HCG, Quant 1092.98 09/17/20 15:15: Sodium 136, Potassium 3.6, Chloride 101, Carbon Dioxide 24, Anion Gap 11.0, BUN 11, Creatinine 0.7, Estimated GFR (MDRD) 98, Glucose 131 H, Calcium 9.2 09/17/20 15:15: WBC 10.0, RBC 4.12 L, Hgb 12.5, Hct 37.0, MCV 89.8, MCH 30.3, MCHC 33.8, RDW 12.8, Plt Count 209, MPV 9.3, Neut # (Auto) 9.2 H, Lymph # (Auto) 0.5 L, [place] # (Auto) 0.3, Eos # (Auto) 0.0, Baso # (Auto) 0.0, Absolute Nucleated RBC 0.00, Nucleated RBC % 0.0 09/17/20 15:15: Blood Type A POSITIVE, Antibody Screen NEGATIVE Lab results reviewed: Yes Fish Bones: 09/17/20 15:15 09/17/20 15:15 Home Medications and Allergies Allergies/Adverse Reactions: Allergies Allergy/AdvReac Type Severity Reaction Status Date / Time No Known Drug Allergies Allergy Verified 08/30/20 15:34 Anes History & Medical History - Anesthetic History Anesthesia Complications: reports: No previous complications Family history of Anesthesia Complications: Denies Family history of Malignant Hyperthermia: Denies - Medical History Cardiovascular: reports: None Pulmonary: reports: None Gastrointestinal: reports: None Urinary: reports: None Neuro: reports: None Musculoskeletal: reports: None Endocrine/Autoimmune: reports: None Blood Disorders: reports: None Skin: reports: None Smoking Status: Never smoker Exam General: Alert, Oriented x3, Cooperative, No acute distress Dental: WNL Mouth Openin Fingerbreadth Neck Mobility: Normal Mallampati classification: II Plan Anesthesia Type: General Consent for Procedure(s) Verified and Reviewed: Yes Code Status: Attempt Resuscitation ASA classification: 2-Mild systemic disease Is this case an emergency?: Yes
[2020-09-17] MEDS ORDERED: ATROPINE ABBOJECT 1 MG/10 ML SYRINGE IVP PRN (18:57)
[2020-09-17] MEDS ORDERED: MORPHINE 2 MG/ML CARPUJECT IVP PRN (18:57)
[2020-09-17] MEDS ORDERED: ONDANSETRON 4 MG/2 ML VIAL IVP PRN ×2 (18:57→21:47)
[2020-09-17] MEDS ORDERED: fentaNYL 100 MCG/2 ML VIAL IVP PRN (18:57)
[2020-09-17] MEDS ORDERED: METOCLOPRAMIDE 10 MG/2 ML VIAL IVP PRN (18:57)
[2020-09-17] MEDS ORDERED: HYDROmorphone 0.5 MG/0.5 ML SYRINGE IVP PRN (18:57)
[2020-09-17] MEDS ORDERED: ePHEDrine 50 MG/ML VIAL IVP PRN (18:57)
[2020-09-17] MEDS ORDERED: NALOXONE 0.4 MG/ML VIAL IVP PRN (18:57)
[2020-09-17] MEDS ORDERED: LACTATED RINGERS 1,000 ML IV SCH (19:00)
[2020-09-17] MEDS ORDERED: LACTATED RINGERS 1,000 ML IV STA (19:08)
[2020-09-17] MEDS ORDERED: DEXAMETHASONE 4 MG/ML VIAL IVP ONE (19:15)
[2020-09-17] MEDS ORDERED: ROCURONIUM 50 MG/5 ML VIAL IVP ONE (19:15)
[2020-09-17] MEDS ORDERED: SUCCINYLCHOLINE 200 MG/10 ML VIAL IVP ONE (19:15)
[2020-09-17] MEDS ORDERED: ONDANSETRON 4 MG/2 ML VIAL IVP ONE (19:15)
[2020-09-17] MEDS ORDERED: NEOSTIGMINE 1 MG/1 ML 10 ML MDV IVP ONE (19:15)
[2020-09-17] MEDS ORDERED: fentaNYL 100 MCG/2 ML VIAL IVP ONE (19:15)
[2020-09-17] MEDS ORDERED: ePHEDrine 50 MG/ML VIAL IVP ONE (19:15)
[2020-09-17] MEDS ORDERED: KETOROLAC 30 MG/ML VIAL IVP ONE (19:15)
[2020-09-17] MEDS ORDERED: MIDAZOLAM 2 MG/2 ML VIAL IVP ONE (19:15)
[2020-09-17] MEDS ORDERED: PROPOFOL 200 MG/20 ML VIAL IVP ONE (19:15)
[2020-09-17] MEDS ORDERED: GLYCOPYRROLATE 1 MG/5 ML VIAL IVP ONE (19:15)
[2020-09-17 19:48] LABS: C. PNEUMONIAE- RESP PCR PANEL NOT DETECTED
[2020-09-17] MEDS ORDERED: LIDOCAINE 2%-EPI 1:100000 20 ML MDV ONE ×2 (19:50→21:02)
[2020-09-17] MEDS ORDERED: BUPIVACAINE 0.25% PF 30 ML VIAL SUBQ ONE (20:24)
[2020-09-17] MEDS ORDERED: LIDOCAINE 2%-EPI 1:100000 20 ML MDV SUBQ ONE (20:24)
[2020-09-17] MEDS ORDERED: BUPIVACAINE 0.25% PF 30 ML VIAL ONE (21:04)
[2020-09-17] MEDS ORDERED: LACTATED RINGERS 100 ML IV ONE (21:21)
[2020-09-17] MEDS ORDERED: LACTATED RINGERS 1,000 ML IV ONE ×2 (21:30→21:36)
--- NOTE | 2020-09-17 21:47 | OPERATIVE REPORT ---
Operative Report - General Procedure Performed: Preop: likely ectopic , bilateral adenexal masses, free fluid in abdomen Postop right ruptured ectopic Surg: sarina Assist: none Anesthesia: general EBL: 200cc IVF 1800cc UOP 200cc Complications: none Dispo: PACU Findings: ruptured right fallopian tube, about 200cc blood and clot in the abdomen and pelvis. Otherwise normal pelvis. Specimens: right tube
[2020-09-17 22:08] LABS: BASOPHILS % (AUTO) 0.2 %; HGB - HEMOGLOBIN 9.2 g/dL (12.0-16.0); LYMPHOCYTES # (AUTO) 0.4 10^3/uL (1.5-3.5); LYMPHOCYTES % (AUTO) 3.6 %; MEAN CORPUSCULAR HEMOGLOBIN 30.5 pg (27.0-31.0); MEAN CORPUSCULAR HGB CONC 33.6 g/dL (32.0-36.0); MEAN CORPUSCULAR VOLUME 90.7 fL (81.0-99.0); MEAN PLATELET VOLUME 9.3 fL (7.9-10.8); MONOCYTES # (AUTO) 0.3 10^3/uL (0.0-1.0); MONOCYTES % (AUTO) 2.7 %; NEUTROPHILS # (AUTO) 9.8 10^3/uL (1.5-6.6); PLT - PLATELET COUNT 160 10^3/uL (130-450); RED BLOOD COUNT 3.02 10^6/uL (4.20-5.40); RED CELL DISTRIBUTION WIDTH 12.7 % (12.0-15.0); WHITE BLOOD COUNT 10.6 x10^3/uL (4.8-10.8)
--- NOTE | 2020-09-17 23:13 | ANESTHESIA POST OP EVALUATION ---
Anesthesia Post Eval - Post Anesthesia Eval Vitals: Last Vital Signs Temp 36.7 C 09/17/20 22:50 Pulse 84 09/17/20 22:50 Resp 16 09/17/20 22:50 BP 109/64 09/17/20 22:50 Pulse Ox 100 09/17/20 22:50 CV Function Including HR & BP: positive: Stable Pain Control: positive: Satisfactory Nausea & Vomiting: positive: Negative Mental Status: positive: Baseline Respiratory Status: Airway Patent Hydration Status: Satisfactory Anesthesia Complications: positive: None
[2020-09-18] MEDS: oxyCODONE 5 MG TABLET PO PRN ×3 (01:25→09:09)
[2020-09-18] MEDS: BENZOCAINE/MENTHOL LOZENGE MM PRN ×2 (01:28→05:04)
--- NOTE | 2020-09-18 02:30 | OPERATIVE REPORT ---
DATE OF SERVICE: 09/17/2020 Physician: Fatemeh Xavier MD PREOPERATIVE DIAGNOSES 1. Likely ruptured ectopic . 2. Bilateral adnexal masses. 3. Free fluid in the abdomen. POSTOPERATIVE DIAGNOSIS: Right ruptured fallopian tube ectopic . SURGEON: Fatemeh Xavier MD SENIOR INTERACTIVE DEVELOPER: None. PROCEDURE: Laparoscopic right salpingectomy. ANESTHESIA: General. ESTIMATED BLOOD LOSS: 200 mL INTRAVENOUS FLUIDS: 1800 mL URINE OUTPUT: 200 mL COUNTS: Correct x2. COMPLICATIONS: None apparent. DISPOSITION: Stable to recovery room. PROPHYLAXIS: SCDs to bilateral lower extremities. No antibiotics indicated. SPECIMENS: Right fallopian tube to pathology. FINDINGS: Upon entry to the abdominal cavity, the pelvis was full of coagulated blood and there was blood that tracked up to the liver. The right fallopian tube was ruptured in its mid position. The remainder of the pelvic anatomy was normal. The left fallopian tube had a healthy fimbriated end see n. She had a normal-appearing uterus and ovaries. No evidence of endometriosis was seen. There was no adhesive disease seen. COUNSELING: The patient had severe abdominal pain with rebound. She had a possible ectopic pregnanc y diagnosed a while back and her HCGs dropped, but these were not followed. On ultrasound, she had f ree fluid in her belly and bilateral complex adnexal masses. She was consented for diagnostic laparo scopy with possible removal of ovaries or fallopian tubes due to ectopic . We also discusse d doing a dilation and curettage, as the ultrasound images were confusing. This was because she had bilateral adnexal masses, instead of a unilateral mass. The uterus did appear empty; but as the preg brenda was of unknown location, I had wanted to sample the endometrium as well. Procedure and recovery were explained. Risks including, but not limited to bleeding, infection, trau ma to local organs, anesthesia complications and failure to remove all tissue were reviewed . All questions were answered and the operative consent was signed. DESCRIPTION OF PROCEDURE: The patient was brought to the operating room, where she was induced with general anesthesia. She was placed in low lithotomy in [facility]. Her arms were tucked at h er sides bilaterally. She was noted to have an axial uterus, so a bimanual examination was not perfo rmed. She was prepped and draped in the usual sterile fashion. A speculum was placed and a single-t ooth tenaculum was applied to the anterior lip of the cervix. A HUMI uterine manipulator was easily inserted into the uterine cavity and the balloon was inflated. The tenaculum was removed, as was the speculum. The nurse had placed a Mishra catheter during the prep. The surgeon's over gloves were changed. Shortly before the procedure, the patient had a vagal event and became tachycardic. Due to this, the procedure was expedited and I did not wait for local anesth esia to be available before making the skin incisions. All trocars were inserted under direct visual ization. The first incision was a 5 mm vertical in the inferior umbilicus. The abdominal tissues we re tented upward and the trocar was placed at a 10-degree angle. The abdomen was insufflated. Openi ng pressure was low and the findings were a pelvis occluded by blood and clot. A 5 mm trocar was [place] in the left lower quadrant approximately 8 cm lateral to and 4 cm inferior to the umbilicus. A t hird trocar was placed, a 5 mm, 3 cm superior to the pubic symphysis in the midline. A 5 mm suction consulting psychiatrist was used to evacuate blood clot. This was found to be inadequate to remove the clot. The left lower quadrant trocar was extended to an 11 mm incision. An 11 mm trocar was then inserted unde r direct visualization. The size 10 suction was effective in evacuating blood and clot from the pelv is. The anatomy was visualized. The right fallopian tube was removed by dividing it from the uterin e cornua. It was then amputated by dissecting it off of the mesosalpinx. It was placed in an EndoCa tch, which was brought up through the 10 mm trocar. During the removal, the bag was pulled through t he incision and the specimen remained inside the abdominal cavity. The specimen was divided into 3 s ections and then placed a second EndoCatch. This was easily delivered out of the 10 mm trocar. The patient's abdomen was copiously flushed with saline until the blood and clot were evacuated. The lids on the trocars were removed, and the patient was given big breaths to facilitate the exit of ga s. All the trocars were removed. The 5 mm trocars were closed with subcuticular sutures of 4-0 [place] cryl. The fascia was closed on the 11 degree port by visualizing it with S retractors and then reapp roximating it with interrupted suture of 0 Vicryl. The skin was closed with subcuticular sutures. D ermabond was applied to all of the incisions. The Mishra and HUMI retractor were removed. The blood and Betadine were washed from her body and she was returned to the supine position prior to waking. TD: 09/18/2020 01:03
--- NOTE | 2020-09-18 08:10 | PROVIDER PROGRESS NOTE ---
Subjective - Subjective Subjective: Pain is better than in ER. Eat, ambulate, urinate OK. No issues Mild tachycardia, HR in room 92 BPM, slightly low BP, patient is tall and thin. Alert, smiling NAD Abd not distended, soft Incisions normal, covered with dermabond. Repeat Hct 29. VS OK in setting of able to ambulate well, no flare in pain, no evidence of intraabdominal bleeding. Routine postop care with anemia precautions, take Fe, f/u in 1w. Objective - Vital Signs/Intake & Output Vital Signs: Vital Signs x48h Temp Pulse Resp BP Pulse Ox 09/18/20 05:45 99 17 96/45 L 97 09/18/20 05:30 99.5 F 102 H 16 95/41 L 96 09/18/20 04:11 99.5 F 88 16 96/45 L 97 09/18/20 02:25 98.8 F 94 16 105/49 L 97 09/18/20 00:54 78 18 111/54 L 99 Intake & Output: Intake & Output 09/15/20 09/16/20 09/17/20 09/18/20 23:59 23:59 23:59 23:59 Intake Total 500 Output Total 1500 Balance -1000 - Lab Results Fish Bones: 09/17/20 22:02 09/17/20 15:15 Other Labs: Lab Results x24hrs 09/17/20 09/17/20 09/17/20 Range/Units 22:02 18:45 15:15 WBC 10.6 (4.8-10.8) x10^3/uL RBC 3.02 L (4.20-5.40) 10^6/uL Hgb 9.2 L (12.0-16.0) g/dL Hct 27.4 L (37.0-47.0) % MCV 90.7 (81.0-99.0) fL MCH 30.5 (27.0-31.0) pg MCHC 33.6 (32.0-36.0) g/dL RDW 12.7 (12.0-15.0) % Plt Count 160 (130-450) 10^3/uL MPV 9.3 (7.9-10.8) fL Neut # (Auto) 9.8 H (1.5-6.6) 10^3/uL Lymph # (Auto) 0.4 L (1.5-3.5) 10^3/uL [place] # (Auto) 0.3 (0.0-1.0) 10^3/uL Eos # (Auto) 0.0 (0.0-0.7) 10^3/uL Baso # (Auto) 0.0 (0.0-0.1) 10^3/uL Absolute Nucleated RBC 0.00 x10^3/uL Nucleated RBC % 0.0 /100WBC Sodium (135-145) mmol/L Potassium (3.5-5.0) mmol/L Chloride (101-111) mmol/L Carbon Dioxide (21-32) mmol/L Anion Gap (6-13) BUN (6-20) mg/dL Creatinine (0.4-1.0) mg/dL Estimated GFR (MDRD) (>89) Glucose (70-100) mg/dL Calcium (8.5-10.3) mg/dL Total Bilirubin 1.3 H (0.2-1.0) mg/dL AST 15 (10-42) IU/L ALT 16 (10-60) IU/L Alkaline Phosphatase 58 (42-121) IU/L Total Protein 7.5 (6.7-8.2) g/dL Albumin 4.7 (3.2-5.5) g/dL HCG, Quant mIU/mL Urine Color Urine Clarity (CLEAR) Urine pH (5.0-7.5) PH Ur Specific [place] (1.002-1.030) Urine Protein (NEGATIVE) mg/dL Urine Glucose (UA) (NEGATIVE) mg/dL Urine Ketones (NEGATIVE) mg/dL Urine Occult Blood (NEGATIVE) Urine Nitrite (NEGATIVE) Urine Bilirubin (NEGATIVE) Urine Urobilinogen (NORMAL) E.U./dL Ur Leukocyte Esterase (NEGATIVE) Urine RBC (0-5) /HPF Urine WBC (0-5) /HPF Ur Squamous Epith Cells (<= Few) Amorphous Sediment /LPF Urine Bacteria (None Seen) /HPF Ur Microscopic Review Urine Culture Comments Nasal Adenovirus (PCR) NOT DETECTED Nasal B. parapertussis DNA (PCR) NOT DETECTED Nasal Coronavir 229E PCR NOT DETECTED Nasal Coronavir HKU1 PCR NOT DETECTED Nasal Coronavir NL63 PCR NOT DETECTED Nasal Coronavir OC43 PCR NOT DETECTED Nasal Enterovir/Rhinovir PCR NOT DETECTED Nasal Influenza B PCR NOT DETECTED Nasal Influenza A PCR NOT DETECTED Nasal Parainfluen 1 PCR NOT DETECTED Nasal Parainfluen 2 PCR NOT DETECTED Nasal Parainfluen 3 PCR NOT DETECTED Nasal Parainfluen 4 PCR NOT DETECTED Nasal RSV (PCR) NOT DETECTED Nasal B.pertussis DNA PCR NOT DETECTED Nasal C.pneumoniae (PCR) NOT DETECTED Adis Human Metapneumo PCR NOT DETECTED Nasal M.pneumoniae (PCR) NOT DETECTED Nasal SARS-CoV-2 (PCR) NOT DETECTED Blood Type Antibody Screen Crossmatch IS Only 09/17/20 09/17/20 09/17/20 Range/Units 15:15 15:15 15:15 WBC 10.0 (4.8-10.8) x10^3/uL RBC 4.12 L (4.20-5.40) 10^6/uL Hgb 12.5 (12.0-16.0) g/dL Hct 37.0 (37.0-47.0) % MCV 89.8 (81.0-99.0) fL MCH 30.3 (27.0-31.0) pg MCHC 33.8 (32.0-36.0) g/dL RDW 12.8 (12.0-15.0) % Plt Count 209 (130-450) 10^3/uL MPV 9.3 (7.9-10.8) fL Neut # (Auto) 9.2 H (1.5-6.6) 10^3/uL Lymph # (Auto) 0.5 L (1.5-3.5) 10^3/uL [place] # (Auto) 0.3 (0.0-1.0) 10^3/uL Eos # (Auto) 0.0 (0.0-0.7) 10^3/uL Baso # (Auto) 0.0 (0.0-0.1) 10^3/uL Absolute Nucleated RBC 0.00 x10^3/uL Nucleated RBC % 0.0 /100WBC Sodium 136 (135-145) mmol/L Potassium 3.6 (3.5-5.0) mmol/L Chloride 101 (101-111) mmol/L Carbon Dioxide 24 (21-32) mmol/L Anion Gap 11.0 (6-13) BUN 11 (6-20) mg/dL Creatinine 0.7 (0.4-1.0) mg/dL Estimated GFR (MDRD) 98 (>89) Glucose 131 H (70-100) mg/dL Calcium 9.2 (8.5-10.3) mg/dL Total Bilirubin (0.2-1.0) mg/dL AST (10-42) IU/L ALT (10-60) IU/L Alkaline Phosphatase (42-121) IU/L Total Protein (6.7-8.2) g/dL Albumin (3.2-5.5) g/dL HCG, Quant 1092.98 mIU/mL Urine Color Urine Clarity (CLEAR) Urine pH (5.0-7.5) PH Ur Specific [place] (1.002-1.030) Urine Protein (NEGATIVE) mg/dL Urine Glucose (UA) (NEGATIVE) mg/dL Urine Ketones (NEGATIVE) mg/dL Urine Occult Blood (NEGATIVE) Urine Nitrite (NEGATIVE) Urine Bilirubin (NEGATIVE) Urine Urobilinogen (NORMAL) E.U./dL Ur Leukocyte Esterase (NEGATIVE) Urine RBC (0-5) /HPF Urine WBC (0-5) /HPF Ur Squamous Epith Cells (<= Few) Amorphous Sediment /LPF Urine Bacteria (None Seen) /HPF Ur Microscopic Review Urine Culture Comments Nasal Adenovirus (PCR) Nasal B. parapertussis DNA (PCR) Nasal Coronavir 229E PCR Nasal Coronavir HKU1 PCR Nasal Coronavir NL63 PCR Nasal Coronavir OC43 PCR Nasal Enterovir/Rhinovir PCR Nasal Influenza B PCR Nasal Influenza A PCR Nasal Parainfluen 1 PCR Nasal Parainfluen 2 PCR Nasal Parainfluen 3 PCR Nasal Parainfluen 4 PCR Nasal RSV (PCR) Nasal B.pertussis DNA PCR Nasal C.pneumoniae (PCR) Adis Human Metapneumo PCR Nasal M.pneumoniae (PCR) Nasal SARS-CoV-2 (PCR) Blood Type Antibody Screen Crossmatch IS Only 09/17/20 09/17/20 Range/Units 15:15 14:55 WBC (4.8-10.8) x10^3/uL RBC (4.20-5.40) 10^6/uL Hgb (12.0-16.0) g/dL Hct (37.0-47.0) % MCV (81.0-99.0) fL MCH (27.0-31.0) pg MCHC (32.0-36.0) g/dL RDW (12.0-15.0) % Plt Count (130-450) 10^3/uL MPV (7.9-10.8) fL Neut # (Auto) (1.5-6.6) 10^3/uL Lymph # (Auto) (1.5-3.5) 10^3/uL [place] # (Auto) (0.0-1.0) 10^3/uL Eos # (Auto) (0.0-0.7) 10^3/uL Baso # (Auto) (0.0-0.1) 10^3/uL Absolute Nucleated RBC x10^3/uL Nucleated RBC % /100WBC Sodium (135-145) mmol/L Potassium (3.5-5.0) mmol/L Chloride (101-111) mmol/L Carbon Dioxide (21-32) mmol/L Anion Gap (6-13) BUN (6-20) mg/dL Creatinine (0.4-1.0) mg/dL Estimated GFR (MDRD) (>89) Glucose (70-100) mg/dL Calcium (8.5-10.3) mg/dL Total Bilirubin (0.2-1.0) mg/dL AST (10-42) IU/L ALT (10-60) IU/L Alkaline Phosphatase (42-121) IU/L Total Protein (6.7-8.2) g/dL Albumin (3.2-5.5) g/dL HCG, Quant mIU/mL Urine Color YELLOW Urine Clarity HAZY (CLEAR) Urine pH 8.0 H (5.0-7.5) PH Ur Specific [place] 1.025 (1.002-1.030) Urine Protein NEGATIVE (NEGATIVE) mg/dL Urine Glucose (UA) NEGATIVE (NEGATIVE) mg/dL Urine Ketones 15 H (NEGATIVE) mg/dL Urine Occult Blood SMALL H (NEGATIVE) Urine Nitrite NEGATIVE (NEGATIVE) Urine Bilirubin NEGATIVE (NEGATIVE) Urine Urobilinogen 2 H (NORMAL) E.U./dL Ur Leukocyte Esterase NEGATIVE (NEGATIVE) Urine RBC 6-10 H (0-5) /HPF Urine WBC 0-3 (0-5) /HPF Ur Squamous Epith Cells FEW Squamous (<= Few) Amorphous Sediment Few /LPF Urine Bacteria Few (None Seen) /HPF Ur Microscopic Review INDICATED Urine Culture Comments NOT INDICATED Nasal Adenovirus (PCR) Nasal B. parapertussis DNA (PCR) Nasal Coronavir 229E PCR Nasal Coronavir HKU1 PCR Nasal Coronavir NL63 PCR Nasal Coronavir OC43 PCR Nasal Enterovir/Rhinovir PCR Nasal Influenza B PCR Nasal Influenza A PCR Nasal Parainfluen 1 PCR Nasal Parainfluen 2 PCR Nasal Parainfluen 3 PCR Nasal Parainfluen 4 PCR Nasal RSV (PCR) Nasal B.pertussis DNA PCR Nasal C.pneumoniae (PCR) Adis Human Metapneumo PCR Nasal M.pneumoniae (PCR) Nasal SARS-CoV-2 (PCR) Blood Type A POSITIVE Antibody Screen NEGATIVE Crossmatch IS Only See Detail
[2020-09-18 09:24] VITALS: BP 96/52
== END 2020-09-18 09:10 | disposition home or self-care (01) ==
LOC: ED 14:46 → SDS 17:54 → MS2 20:42 → SDS 09-18 09:10
PROVIDERS: ATTEND Obstetrics & Gynecology
PROC: 0UT54ZZ Resection of Right Fallopian Tube, Percutaneous Endoscopic Approach (ICD-10-PCS; 2020-09-17)
PROC: 10T24ZZ Resection of Products of Conception, Ectopic, Percutaneous Endoscopic Approach (ICD-10-PCS; principal; 2020-09-17 18:45)
DX: O00.101 Right tubal pregnancy without intrauterine pregnancy (principal); Z20.828 Contact with and (suspected) exposure to other viral communicable diseases; R00.0 Tachycardia, unspecified; R55 Syncope and collapse; F17.290 Nicotine dependence, other tobacco product, uncomplicated
CPT/HCPCS: 0202U; 36415; 59151; 76801; 76817; 80048; 81001; 82040; 82247; 84075; 84155; 84450; 84460; 84702; 85025; 86850; 86900; 86901; 86920; 96374; 96375; 96376; 99284; 99285; A9270; J0330; J1170; J7120; 80053; 81003; 87086

== ENCOUNTER 2020-09-27 15:20 | Emergency (ER) | payer MEDICAID ==
--- NOTE | 2020-09-27 15:48 | ED Physician Documentation ---
History of Present Illness - Stated complaint Stated Complaint: DIZZY,NAUSEA,ABD PX - Chief complaint Chief Complaint: Abd Pain - History of Present Illness Timing: Prior to arrival - Additonal information Additional information: 30-year-old female presents to the emergency department with acute onset shortness of breath presyncope lower abdominal pain and nausea. She unfortunately underwent laparoscopic surgery for an ruptured right ectopic 09/18/2020. She was discharged home and felt that she had been recuperating well until the events began acutely approximately 90 minutes ago. She did endorse that she had some discomfort in her lower abdominal area that lasted just a few minutes during the time of these symptoms. She has not syncopized. She denies any chest pain. She has no unilateral leg swelling or calf pain tenderness. Review of Systems Eyes: reports: Reviewed and negative Ears: reports: Reviewed and negative Nose: reports: Reviewed and negative Throat: reports: Reviewed and negative Cardiac: denies: Chest pain / pressure, Palpitations, Pedal edema, Calf pain Respiratory: reports: Dyspnea. denies: Cough, Hemoptysis, Wheezing GI: reports: Abdominal Pain, Nausea. denies: Vomiting, Constipation, Diarrhea, Hematemesis : denies: Dysuria, Frequency, Hesitancy Skin: denies: Rash, Lesions Musculoskeletal: reports: Reviewed and negative Neurologic: reports: Reviewed and negative PD PAST MEDICAL HISTORY - Past Medical History Cardiovascular: None Respiratory: None Neuro: None Endocrine/Autoimmune: None GI: None YARN SALVAGER: None : None HEENT: None Psych: None Musculoskeletal: None Derm: None - Past Surgical History Past Surgical History: No - Present Medications Home Medications: Ambulatory Orders Medication Instructions Recorded Confirmed Ibuprofen [Motrin] 600 mg PO Q6H PRN #30 tab 09/17/20 Iron Polysaccharide Complex 150 mg PO DAILY #30 capsule 09/17/20 [Polysaccharide Iron] oxyCODONE [Roxicodone] 5 mg PO Q4-6H PRN #15 tablet 09/17/20 - Allergies Allergies/Adverse Reactions: Allergies Allergy/AdvReac Type Severity Reaction Status Date / Time No Known Drug Allergies Allergy Verified 09/27/20 15:28 - Social History Does the pt smoke?: No Smoking Status: Never smoker Does the pt drink ETOH?: No Does the pt have substance abuse?: No - Immunizations Immunizations are current?: Yes PD ED PE EXPANDED - General General: Alert, No acute distress - HEENT HEENT: PERRL, EOMI - Neck Neck: Supple w/out meningeal sx. No: Adenopathy - Cardiac Cardiac: Regular Rate, Regular Rhythm, Radial strong equal, Femoral strong equal, Pedal strong equal, Cap refill < 2 sec - Respiratory Respiratory: Clear to ausultation rajan, Other (mild pain with deep inspiration). No: Distress, Labored - Abdomen Abdomen: Normal Bowel sounds, Tender to palpation, LLQ (focal tenderness LLQ withotu rebound or guarding) - Derm Derm: Normal color. No: Rash, Petecchiae, Purpura - Extremities Extremities: Normal. No: Pedal edema bilateral, Right calf TTP/cord, Left calf TTP/cord - Neuro Neuro: Alert and Oriented X 3, CNII-XII intact - GCS Eye Opening: Spontaneous Motor: Obeys Commands Verbal: Oriented Total: 15 Results - Vitals Vitals: Vital Signs - 24 hr 09/27/20 09/27/20 09/27/20 15:24 15:58 16:28 Temperature 36.6 C Heart Rate 96 90 92 Respiratory 16 18 18 Rate Blood Pressure 90/67 115/85 H 110/60 O2 Saturation 100 99 98 09/27/20 09/27/20 17:00 17:30 Temperature Heart Rate 86 86 Respiratory 18 19 Rate Blood Pressure 100/68 95/61 O2 Saturation 99 98 Oxygen O2 Source Room air - EKG (time done) 1603 Rate: Rate (enter#) (81) Rhythm: NSR [place]: Normal Intervals: Normal AR QRS: Normal Ischemia: Normal ST segments Compare to prior EKG: Old EKG unavailable Computer interpretation: Agree with computer - Labs Labs: Laboratory Tests 09/27/20 09/27/20 09/27/20 15:39 15:44 15:44 WBC 5.4 RBC 3.74 L Hgb 11.4 L Hct 35.0 L MCV 93.6 MCH 30.5 MCHC 32.6 RDW 14.2 Plt Count 341 MPV 8.5 Neut # (Auto) 3.6 Lymph # (Auto) 1.4 L [place] # (Auto) 0.3 Eos # (Auto) 0.1 Baso # (Auto) 0.0 Absolute Nucleated RBC 0.00 Nucleated RBC % 0.0 Sodium 141 Potassium 3.6 Chloride 103 Carbon Dioxide 25 Anion Gap 13.0 BUN 12 Creatinine 0.8 Estimated GFR (MDRD) 84 L Glucose 95 Lactic Acid Calcium 9.7 Total Bilirubin 1.0 AST 18 ALT 25 Alkaline Phosphatase 60 Total Protein 8.4 H Albumin 4.9 Globulin 3.5 Albumin/Globulin Ratio 1.4 HCG, Quant Urine Color YELLOW Urine Clarity CLEAR Urine pH 6.5 Ur Specific [place] <=1.005 Urine Protein NEGATIVE Urine Glucose (UA) NEGATIVE Urine Ketones NEGATIVE Urine Occult Blood NEGATIVE Urine Nitrite NEGATIVE Urine Bilirubin NEGATIVE Urine Urobilinogen 0.2 (NORMAL) Ur Leukocyte Esterase NEGATIVE Urine RBC None Seen Urine WBC 0-3 Ur Squamous Epith Cells RARE Squamous Urine Bacteria None Seen Urine Culture Comments NOT INDICATED Blood Type Antibody Screen 09/27/20 09/27/20 09/27/20 15:44 15:44 15:44 WBC RBC Hgb Hct MCV MCH MCHC RDW Plt Count MPV Neut # (Auto) Lymph # (Auto) [place] # (Auto) Eos # (Auto) Baso # (Auto) Absolute Nucleated RBC Nucleated RBC % Sodium Potassium Chloride Carbon Dioxide Anion Gap BUN Creatinine Estimated GFR (MDRD) Glucose Lactic Acid 0.9 Calcium Total Bilirubin AST ALT Alkaline Phosphatase Total Protein Albumin Globulin Albumin/Globulin Ratio HCG, Quant 12.36 Urine Color Urine Clarity Urine pH Ur Specific [place] Urine Protein Urine Glucose (UA) Urine Ketones Urine Occult Blood Urine Nitrite Urine Bilirubin Urine Urobilinogen Ur Leukocyte Esterase Urine RBC Urine WBC Ur Squamous Epith Cells Urine Bacteria Urine Culture Comments Blood Type A POSITIVE Antibody Screen NEGATIVE - Rads (name of study) CT Angio chest Radiology: Final report received (no acute cardiopulmonary findings. No pulmonary embolus evident.) CT abd/pelvis Radiology: Final report received (Heterogeneous appearance of the uterus which is nonspecific. This could reflect physiologic or infectious/inflammatory etiologies. Mild pelvic free fluid which is likely within physiologic range.) PD MEDICAL DECISION MAKING - ED course Complexity details: reviewed old records, reviewed results, re-evaluated patient, considered differential, d/w patient, d/w cost consultant (Marilou (OB taxation consultant)) ED course: 30-year-old female presents to the emergency department with acute onset shortness of breath feeling faint, weak as well as mild lower pelvic pain. She unfortunately underwent a laparoscopic surgery for a ruptured right ectopic September 18, 2020. She had been discharged home and feeling well until the events of this afternoon. CT pulmonary angiogram does not reveal any acute cardiopulmonary findings. No pulmonary embolus. She has no fever, no leukocytosis. She does have a blood pressure in the 90s over 50s but this is typical for her and evidenced on previous admission. Her hemoglobin is stable at greater than 11. CT of the abdomen did not show any free fluid or evidence of rebleed. On reexam the patient was pain-free and had no further dyspnea. Urine unremarkable for signs of infection This case was discussed with on-call OB Dr. Vargas. At this time he would recommend no further care but closer follow-up with the OB department. She is instructed to call tomorrow for an appointment sooner than the already scheduled October 05 visit. Departure - Departure Disposition: Home, Self Care Clinical Impression: Shortness of breath, History of ectopic , Pelvic pain Condition: Stable Record reviewed to determine appropriate education?: Yes Follow-Up: Fatemeh Xavier MD [Provider Admit Priv/Credential] - Comments: I am glad that you are feeling better. The angiogram of your chest did not show any blood clots. The CT of your abdomen did not show signs that you are having internal bleeding. Your lab work today was unremarkable. It is not clear what the cause of your shortness of breath was. It is important to discuss this ED visit with the OB department as soon as possible. You are scheduled to be seen on the but I would like you to call them tomorrow to schedule a sooner follow-up. If at any point you have fainting episodes, suddenly severe lower abdominal pain, have a racing heart or feel faint please return immediately to the ER
[2020-09-27 15:56] LABS: BASOPHILS % (AUTO) 0.6 %; EOSINOPHILS # (AUTO) 0.1 10^3/uL (0.0-0.7); EOSINOPHILS % (AUTO) 1.3 %; HGB - HEMOGLOBIN 11.4 g/dL (12.0-16.0); LYMPHOCYTES # (AUTO) 1.4 10^3/uL (1.5-3.5); LYMPHOCYTES % (AUTO) 25.6 %; MEAN CORPUSCULAR HEMOGLOBIN 30.5 pg (27.0-31.0); MEAN CORPUSCULAR HGB CONC 32.6 g/dL (32.0-36.0); MEAN CORPUSCULAR VOLUME 93.6 fL (81.0-99.0); MEAN PLATELET VOLUME 8.5 fL (7.9-10.8); MONOCYTES # (AUTO) 0.3 10^3/uL (0.0-1.0); MONOCYTES % (AUTO) 6.1 %; NEUTROPHILS # (AUTO) 3.6 10^3/uL (1.5-6.6); NEUTROPHILS % (AUTO) 66.2 %; PLT - PLATELET COUNT 341 10^3/uL (130-450); RED BLOOD COUNT 3.74 10^6/uL (4.20-5.40); RED CELL DISTRIBUTION WIDTH 14.2 % (12.0-15.0); WHITE BLOOD COUNT 5.4 x10^3/uL (4.8-10.8)
[2020-09-27 16:00] LABS: BILIRUBIN,URINE NEGATIVE (NEGATIVE); GLUCOSE, URINE (UA) NEGATIVE (NEGATIVE); KETONES,URINE (UA) NEGATIVE (NEGATIVE); LEUKOCYTE ESTERASE, URINE NEGATIVE (NEGATIVE); NITRITE,URINE NEGATIVE (NEGATIVE); OCCULT BLOOD,URINE NEGATIVE (NEGATIVE); PH,URINE 6.5 PH (5.0-7.5); PROTEIN,URINE NEGATIVE (NEGATIVE); UROBILINOGEN,URINE 0.2 (NORMAL) E.U./dL (NORMAL)
[2020-09-27 16:10] LABS: ALBUMIN 4.9 g/dL (3.2-5.5); ALBUMIN/GLOBULIN RATIO 1.4 (1.0-2.2); CALCIUM 9.7 mg/dL (8.5-10.3); CREATININE 0.8 mg/dL (0.4-1.0); TOTAL PROTEIN 8.4 g/dL (6.7-8.2)
[2020-09-27] MEDS ORDERED: IOVERSOL 320 100 ML VIAL IVP ONE ×2 (16:10→18:33)
[2020-09-27 16:11] LABS: BACTERIA,URINE None Seen /HPF (None Seen); CLARITY,URINE CLEAR (CLEAR); RBC,URINE None Seen /HPF (0-5); SQUAMOUS EPITHELIAL CELL,UR RARE Squamous (<= Few)
--- NOTE | 2020-09-27 17:11 | CT Report ---
PROCEDURE: Abdomen/Pelvis W INDICATIONS: acute lower pelvic pain ; s/p recent ectopic CONTRAST: IV CONTRAST: Optiray 320 ml: 100 PO CONTRAST: *NO PO CONTRAST TECHNIQUE: After the administration of intravenous contrast, 5 mm thick sections acquired from the diaphragms to the symphysis. 5 mm thick coronal and sagittal reformats were acquired. For radiation dose reducti on, the following was used: automated exposure control, adjustment of mA and/or kV according to anuj ent size. COMPARISON: None. FINDINGS: Image quality: Excellent. ABDOMEN: Lung bases: Lung bases are clear. Heart size is normal. Solid organs: Liver and spleen are normal in size and enhancement. Gallbladder contracted otherwise unremarkable Biliary system is non dilated. Pancreas enhances normally. No adrenal nodules. Kidn eys demonstrate normal size and enhancement, without hydronephrosis. Peritoneum and bowel: Bowel loops demonstrate normal wall thickness and caliber. No free fluid or a ir. The appendix is not clearly identified however no suspicious inflammatory changes in the right l ower quadrant. Nodes and vessels: No retroperitoneal or mesenteric adenopathy by size criteria. Aorta and inferior vena cava are normal in size. Miscellaneous: No ventral hernias. PELVIS: Heterogeneous appearance of the uterus, with a low-attenuation focus seen on image 68/6, which would be better evaluated with dedicated ultrasound as clinically warranted. There is physiologic amounts o f pelvic free fluid. Miscellaneous: No inguinal hernias or adenopathy. Bones: No suspicious bony lesions. No vertebral body compression fractures. IMPRESSION: Heterogeneous appearance of the uterus, which is nonspecific. This could reflect physiologic, or infe ctious/inflammatory etiologies.Recommend correlation with beta hCG values. Further characterization with dedicated pelvic ultrasound could be performed as clinically warranted . Mild pelvic free fluid which is likely within physiologic range. Reviewed by: Duc Valentin MD on 09/27/2020 5:10 PM PST Approved by: Duc Valentin MD on 09/27/2020 5:10 PM PST Station ID: [id number]
--- NOTE | 2020-09-27 17:12 | CT Report ---
PROCEDURE: ANGIO CHEST W/WO INDICATIONS: acute SOB; recent ectopic surgery CONTRAST: IV CONTRAST: Optiray 320 ml: 100 PO CONTRAST: *NO PO CONTRAST TECHNIQUE: After the administration of intravenous contrast, 2 mm thick sections acquired from the pulmonary api josh to the posterior costophrenic angles. 3-dimensional maximum intensity projection (MIP) coronal a nd sagittal reformats were then acquired through the thorax. For radiation dose reduction, the follow ing was used: automated exposure control, adjustment of mA and/or kV according to patient size. COMPARISON: None FINDINGS: Image quality: Excellent. Pulmonary arteries: Pulmonary arteries are normal in size, and demonstrate no intraluminal filling d efects to suggest central pulmonary embolism. Lungs and pleura: Lungs are clear. No pleural effusions or pneumothorax. Central and peripheral ai rways are patent. Mediastinum: Heart size is normal, without pericardial effusion. No mediastinal or hilar adenopathy . Thoracic aorta is normal in caliber and enhancement. Esophagus is normal in caliber, without hiat al hernia. Bones and chest wall: No suspicious bony lesions. Ribs and thoracic spine appear intact throughout. The thyroid is normal. No axillary or supraclavicular adenopathy. Abdomen: Visualized upper abdominal solid organs appear normal in the early arterial phase of enhanc ement. IMPRESSION: 1. Lungs are clear. No pulmonary embolism. Reviewed by: Clare Barber MD on 09/27/2020 5:11 PM PST Approved by: Clare Barber MD on 09/27/2020 5:11 PM PST Station ID: [id number]
[2020-09-27 18:05] VITALS: BP 98/66
== END 2020-09-27 18:20 | disposition home or self-care (01) ==
LOC: ED 15:20
DX: R06.02 Shortness of breath (principal); R10.2 Pelvic and perineal pain
CPT/HCPCS: 36415; 71275; 74177; 80053; 81001; 83605; 84702; 85025; 86850; 86900; 86901; 87040; 93005; 99284; Q9967; 87086

== ENCOUNTER 2020-10-05 12:27 | Outpatient (CLI) | payer MEDICAID | END 2020-10-05 12:28 | disposition home or self-care (01) | LOC: LAB 12:27 | PROVIDERS: ATTEND Obstetrics & Gynecology | DX: Z53.9 Procedure and treatment not carried out, unspecified reason (principal) | CPT/HCPCS: 36415; 84702 ==

== ENCOUNTER 2021-01-25 21:52 | Emergency (ER) | payer MEDICAID ==
[2021-01-25 22:15] LABS: BASOPHILS % (AUTO) 0.8 %; EOSINOPHILS # (AUTO) 0.1 10^3/uL (0.0-0.7); EOSINOPHILS % (AUTO) 2.7 %; HCT - HEMATOCRIT 40.5 % (37.0-47.0); HGB - HEMOGLOBIN 13.4 g/dL (12.0-16.0); LYMPHOCYTES # (AUTO) 2.1 10^3/uL (1.5-3.5); LYMPHOCYTES % (AUTO) 43.2 %; MEAN CORPUSCULAR HEMOGLOBIN 28.4 pg (27.0-31.0); MEAN CORPUSCULAR HGB CONC 33.1 g/dL (32.0-36.0); MEAN CORPUSCULAR VOLUME 85.8 fL (81.0-99.0); MEAN PLATELET VOLUME 9.4 fL (7.9-10.8); MONOCYTES # (AUTO) 0.4 10^3/uL (0.0-1.0); MONOCYTES % (AUTO) 8.1 %; NEUTROPHILS # (AUTO) 2.2 10^3/uL (1.5-6.6); PLT - PLATELET COUNT 228 10^3/uL (130-450); RED BLOOD COUNT 4.72 10^6/uL (4.20-5.40); RED CELL DISTRIBUTION WIDTH 14.1 % (12.0-15.0); WHITE BLOOD COUNT 4.8 x10^3/uL (4.8-10.8)
[2021-01-25 22:29] LABS: ALBUMIN 4.6 g/dL (3.2-5.5); ALBUMIN/GLOBULIN RATIO 1.4 (1.0-2.2); BILIRUBIN,TOTAL 0.9 mg/dL (0.2-1.0); CALCIUM 9.5 mg/dL (8.5-10.3); CREATININE 0.6 mg/dL (0.4-1.0); POTASSIUM 3.6 mmol/L (3.5-5.0); TOTAL PROTEIN 7.8 g/dL (6.7-8.2)
--- NOTE | 2021-01-25 23:41 | ED Physician Documentation ---
History of Present Illness - Stated complaint Stated Complaint: LT LEG PX/POST JJ VACCINE - Chief complaint Chief Complaint: Ext Problem - History obtained from History obtained from: Patient - Additonal information Additional information: 30-year-old woman, previously healthy presents with bruise to the left inner thigh that she noticed while showering today, associated with mild aching nonradiating pain at the same site that is constant, gradual in onset. Patient also endorses some intermittent lightheadedness when standing up suddenly associated with sensation of shortness of breath. denies cough, fever, leg swelling, chest pain. She is concerned because she had the Franck & Franck vaccine on 01/15 and is concerned she may have a blood clot. Otherwise patient is not on control, does not smoke, has no prior history of clots, travel, recent surgery or bedrest. Review of Systems Ten Systems: 10 systems reviewed and negative Constitutional: denies: Fever, Chills Cardiac: denies: Chest pain / pressure Respiratory: reports: Dyspnea. 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 : None HEENT: None Psych: None Musculoskeletal: None Derm: None - Past Surgical History Past Surgical History: No - Present Medications Home Medications: Ambulatory Orders Medication Instructions Recorded Confirmed No Known Home Medications 09/27/20 09/27/20 - Allergies Allergies/Adverse Reactions: Allergies Allergy/AdvReac Type Severity Reaction Status Date / Time No Known Drug Allergies Allergy Verified 01/25/21 22:03 - Social History Does the pt smoke?: No Smoking Status: Never smoker Does the pt drink ETOH?: No Does the pt have substance abuse?: No - Immunizations Immunizations are current?: Yes PD ED PE NORMAL - Vitals Vital signs reviewed: Yes - General General: Alert and oriented X 3, No acute distress, Well developed/nourished - HEENT HEENT: Atraumatic, PERRL, EOMI - Neck Neck: Supple, no meningeal sign - Cardiac Cardiac: RRR - Respiratory Respiratory: No respiratory distress, Clear bilaterally - Abdomen Abdomen: Non tender, Non distended - Derm Derm: Normal color, Warm and dry, Other (mild discoloration to L inner thigh. discomfort to palpation. ) - Extremities Extremities: No deformity, Normal ROM s pain, No edema - Neuro Neuro: Alert and oriented X 3 - Psych Psych: Normal mood, Normal affect Results - Vitals Vitals: Vital Signs - 24 hr 01/25/21 01/25/21 01/25/21 21:55 22:03 23:52 Temperature 36.4 C L 36.4 C L 36.5 C Heart Rate 80 80 80 Respiratory 16 16 16 Rate Blood Pressure 121/83 H 121/83 H 120/80 O2 Saturation 100 100 100 Oxygen O2 Source Room air - Labs Labs: Laboratory Tests 01/25/21 01/25/21 22:11 22:11 WBC 4.8 RBC 4.72 Hgb 13.4 Hct 40.5 MCV 85.8 MCH 28.4 MCHC 33.1 RDW 14.1 Plt Count 228 MPV 9.4 Neut # (Auto) 2.2 Lymph # (Auto) 2.1 [place] # (Auto) 0.4 Eos # (Auto) 0.1 Baso # (Auto) 0.0 Absolute Nucleated RBC 0.00 Nucleated RBC % 0.0 Sodium 140 Potassium 3.6 Chloride 104 Carbon Dioxide 29 Anion Gap 7.0 BUN 14 Creatinine 0.6 Estimated GFR (MDRD) 117 Glucose 90 Calcium 9.5 Total Bilirubin 0.9 AST 18 ALT 17 Alkaline Phosphatase 57 Total Protein 7.8 Albumin 4.6 Globulin 3.2 Albumin/Globulin Ratio 1.4 PD MEDICAL DECISION MAKING - ED course ED course: 30-year-old woman presents for evaluation of left inner thigh pain after receiving Franck & Franck vaccine on 01/15. Her initial DVT study was negative and she is at low risk for clots. I advised the patient to follow-up in 1 week for repeat ultrasound with her primary doctor. Return precautions given Departure - Departure Disposition: 01 Home, Self Care Clinical Impression: Leg pain Condition: Good Instructions: ED RICE Follow-Up: Janette Mack ARNP [Credentialed Staff Provider] - DAVID BOOKER PA-C [Provider Admit Priv/Credential] - Comments: It was nice to meet you! You are seen in the emergency department for left leg pain and discoloration. It does not appear that you have a blood clot, however the recommendation is to have a repeat ultrasound in 1 week. Please return to the emergency department if you experience any new or worsening symptoms or have other concerns. Follow-up with [facility] at [address] [place], [place]. [address]. Phone number [phone]. You can also follow-up with your care provider in [place]. Gabriela Wilson is an ASSISTANT CONSTRUCTION SUPERINTENDENT located in [place]. David Booker is a PA in [place]. Discharge Date/Time: 01/25/21 23:52
[2021-01-25 23:53] VITALS: BP 120/80
--- NOTE | 2021-01-26 07:54 | Ultrasound Report ---
PROCEDURE: Duplex Ext Veins Left INDICATIONS: L inner thigh bruise today, pain, soa TECHNIQUE: Real-time imaging, as well as color and pulse Doppler interrogation, were performed of the lower extr emity deep veins from the inguinal ligament to the popliteal fossa. COMPARISON: None. FINDINGS: The deep veins are normally compressible, and free of intraluminal thrombus. Color and pu lse Doppler demonstrate normal phasic intraluminal flow. There is normal augmentation response to di stal compression maneuver. IMPRESSION: No evidence of deep vein thrombosis involving the left lower extremity. Reviewed by: Kaylene Archer MD, PhD on 01/26/2021 7:53 AM PDT Approved by: Kaylene Archer MD, PhD on 01/26/2021 7:53 AM PDT Station ID: [id number]
== END 2021-01-25 23:52 | disposition home or self-care (01) ==
LOC: ED 21:52
DX: M79.652 Pain in left thigh (principal); R23.8 Other skin changes; R42 Dizziness and giddiness
CPT/HCPCS: 36415; 80053; 85025; 99284

== ENCOUNTER 2022-02-01 12:23 | Emergency (ER) | payer MEDICAID ==
[2022-02-01 12:48] LABS: BASOPHILS % (AUTO) 0.5 %; EOSINOPHILS # (AUTO) 0.1 10^3/uL (0.0-0.7); EOSINOPHILS % (AUTO) 1.6 %; HCT - HEMATOCRIT 39.2 % (37.0-47.0); HGB - HEMOGLOBIN 13.3 g/dL (12.0-16.0); LYMPHOCYTES # (AUTO) 1.2 10^3/uL (1.5-3.5); LYMPHOCYTES % (AUTO) 31.8 %; MEAN CORPUSCULAR HEMOGLOBIN 30.3 pg (27.0-31.0); MEAN CORPUSCULAR HGB CONC 33.9 g/dL (32.0-36.0); MEAN CORPUSCULAR VOLUME 89.3 fL (81.0-99.0); MEAN PLATELET VOLUME 9.2 fL (7.9-10.8); MONOCYTES # (AUTO) 0.3 10^3/uL (0.0-1.0); NEUTROPHILS # (AUTO) 2.2 10^3/uL (1.5-6.6); NEUTROPHILS % (AUTO) 57.8 %; PLT - PLATELET COUNT 194 10^3/uL (130-450); RED BLOOD COUNT 4.39 10^6/uL (4.20-5.40); RED CELL DISTRIBUTION WIDTH 12.6 % (12.0-15.0); WHITE BLOOD COUNT 3.8 x10^3/uL (4.8-10.8)
[2022-02-01 12:57] LABS: BILIRUBIN,URINE NEGATIVE (NEGATIVE); GLUCOSE, URINE (UA) NEGATIVE (NEGATIVE); KETONES,URINE (UA) NEGATIVE (NEGATIVE); LEUKOCYTE ESTERASE, URINE NEGATIVE (NEGATIVE); NITRITE,URINE NEGATIVE (NEGATIVE); OCCULT BLOOD,URINE LARGE (NEGATIVE); PROTEIN,URINE NEGATIVE (NEGATIVE); UROBILINOGEN,URINE 0.2 (NORMAL) E.U./dL (NORMAL)
[2022-02-01 12:59] LABS: ALBUMIN 4.5 g/dL (3.2-5.5); ALBUMIN/GLOBULIN RATIO 1.5 (1.0-2.2); BILIRUBIN,TOTAL 1.6 mg/dL (0.2-1.0); CALCIUM 9.2 mg/dL (8.5-10.3); CREATININE 0.6 mg/dL (0.4-1.0); POTASSIUM 3.7 mmol/L (3.5-5.0); TOTAL PROTEIN 7.5 g/dL (6.7-8.2)
[2022-02-01 13:01] LABS: CLARITY,URINE HAZY (CLEAR); HCG UR QUAL NEGATIVE
[2022-02-01 13:07] LABS: BACTERIA,URINE Rare /HPF (None Seen); RBC,URINE TNTC /HPF (0-5); SQUAMOUS EPITHELIAL CELL,UR RARE Squamous (<= Few); WBC,URINE 0-3 /HPF (0-5)
--- NOTE | 2022-02-01 13:23 | ED Physician Documentation ---
History of Present Illness - Stated complaint Stated Complaint: ABD PX - Chief complaint Chief Complaint: Abd Pain - Additonal information Additional information: 31-year-old female presents emergency department for evaluation of acute right lower abdominal pain. Woke her up from sleep this morning. She has had some nausea but no vomiting. No fevers. No diarrhea. She reports that she does not have dysuria but she has to push in order to micturate and at the end of her void she notices blood. Symptoms do not change before during or after micturition. No history of similar in the past. Unsure if . LMP 01/03/2022. She did have an right ectopic 2 years ago Review of Systems Constitutional: denies: Fever, Chills Throat: reports: Reviewed and negative Cardiac: reports: Reviewed and negative Respiratory: reports: Reviewed and negative GI: reports: Abdominal Pain, Nausea. denies: Vomiting, Constipation, Diarrhea : reports: Hematuria. 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 : None HEENT: None Psych: None Musculoskeletal: None Derm: None - Past Surgical History Past Surgical History: No - Present Medications Home Medications: Ambulatory Orders Medication Instructions Recorded Confirmed No Known Home Medications 09/27/20 09/27/20 - Allergies Allergies/Adverse Reactions: Allergies Allergy/AdvReac Type Severity Reaction Status Date / Time No Known Drug Allergies Allergy Verified 02/01/22 12:35 - Social History Does the pt smoke?: No Smoking Status: Never smoker Does the pt drink ETOH?: No Does the pt have substance abuse?: No - Immunizations Immunizations are current?: Yes - POLST Patient has POLST: No PD ED PE NORMAL - General General: Alert and oriented X 3, No acute distress, Well developed/nourished - HEENT HEENT: Atraumatic, Moist mucous membranes - Neck Neck: Supple, no meningeal sign - Cardiac Cardiac: RRR, No murmur - Respiratory Respiratory: No respiratory distress, Clear bilaterally - Abdomen Abdomen: Normal bowel sounds, Soft, Non distended. No: Non tender (Tenderness in the right lower quadrant. Equivocal McBurney's.) - Back Back: No CVA TTP, No spinal TTP - Derm Derm: Normal color, Warm and dry, No rash - Extremities Extremities: No deformity, No tenderness to palpate, Normal ROM s pain - Neuro Neuro: Alert and oriented X 3, plater production 2-12 intact Eye Opening: Spontaneous Motor: Obeys Commands Verbal: Oriented GCS Score: 15 - Psych Psych: Normal mood Results - Vitals Vitals: Vital Signs - 24 hr 02/01/22 02/01/22 12:32 14:38 Temperature 36.4 C L Heart Rate 86 63 Respiratory 16 16 Rate Blood Pressure 114/75 112/71 O2 Saturation 98 100 Oxygen O2 Source Room air - Labs Labs: Laboratory Tests 02/01/22 02/01/22 02/01/22 12:30 12:41 12:41 WBC 3.8 L RBC 4.39 Hgb 13.3 Hct 39.2 MCV 89.3 MCH 30.3 MCHC 33.9 RDW 12.6 Plt Count 194 MPV 9.2 Neut # (Auto) 2.2 Lymph # (Auto) 1.2 L [place] # (Auto) 0.3 Eos # (Auto) 0.1 Baso # (Auto) 0.0 Absolute Nucleated RBC 0.00 Nucleated RBC % 0.0 Sodium 140 Potassium 3.7 Chloride 103 Carbon Dioxide 28 Anion Gap 9.0 BUN 12 Creatinine 0.6 Estimated GFR (MDRD) 116 Glucose 98 Calcium 9.2 Total Bilirubin 1.6 H AST 15 ALT 16 Alkaline Phosphatase 51 Total Protein 7.5 Albumin 4.5 Globulin 3.0 Albumin/Globulin Ratio 1.5 Lipase 40 HCG, Quant Urine Color YELLOW Urine Clarity HAZY Urine pH 6.0 Ur Specific [place] 1.015 Urine Protein NEGATIVE Urine Glucose (UA) NEGATIVE Urine Ketones NEGATIVE Urine Occult Blood LARGE H Urine Nitrite NEGATIVE Urine Bilirubin NEGATIVE Urine Urobilinogen 0.2 (NORMAL) Ur Leukocyte Esterase NEGATIVE Urine RBC TNTC H Urine WBC 0-3 Ur Squamous Epith Cells RARE Squamous Urine Bacteria Rare Ur Microscopic Review INDICATED Urine Culture Comments NOT INDICATED Urine HCG, Qual NEGATIVE 02/01/22 12:41 WBC RBC Hgb Hct MCV MCH MCHC RDW Plt Count MPV Neut # (Auto) Lymph # (Auto) [place] # (Auto) Eos # (Auto) Baso # (Auto) Absolute Nucleated RBC Nucleated RBC % Sodium Potassium Chloride Carbon Dioxide Anion Gap BUN Creatinine Estimated GFR (MDRD) Glucose Calcium Total Bilirubin AST ALT Alkaline Phosphatase Total Protein Albumin Globulin Albumin/Globulin Ratio Lipase HCG, Quant < 0.60 Urine Color Urine Clarity Urine pH Ur Specific [place] Urine Protein Urine Glucose (UA) Urine Ketones Urine Occult Blood Urine Nitrite Urine Bilirubin Urine Urobilinogen Ur Leukocyte Esterase Urine RBC Urine WBC Ur Squamous Epith Cells Urine Bacteria Ur Microscopic Review Urine Culture Comments Urine HCG, Qual - Rads (name of study) CT abd Radiology: Final report received (Normal appendix. No hydronephrosis or obvious obstructive uropathy. Involuting left ovarian corpus luteum. Right ovary not well seen.) PD MEDICAL DECISION MAKING - ED course Complexity details: reviewed results, re-evaluated patient ED course: 31-year-old female presents emergency department for evaluation of acute right lower quadrant abdominal pain that woke her up from sleep this morning. She also noticed some hematuria with micturition. No fevers or vomiting. No diarrhea. She is not . Screening labs are essentially unremarkable sparing ronald hematuria. However not consistent with acute cystitis. A CT of the abdomen does not show acute appendicitis. However there were no other findings to suggest renal colic UPJ or UVJ stone. 9 patient's pain is well controlled here in the emergency department she is hemodynamically stable. I discussed the findings of CT scan with her that do not show a clear etiology for her lower belly pain. However I do suspect that given the acute hematuria and right lower quadrant pain she was likely passing a stone. She is given a hat on discharge. Recommend Tylenol and ibuprofen for analgesia. If not markedly better she will return to the ER but she may need follow-up with PCP to consider urology referral. Emergent return precautions discussed for worsening symptoms Departure - Departure Disposition: 01 Home, Self Care Clinical Impression: RLQ abdominal pain Hematuria Qualifiers: Hematuria type: unspecified type Qualified Code(s): R31.9 - Hematuria, unspecified Condition: Stable Record reviewed to determine appropriate education?: Yes Instructions: ED Abdominal Pain Cause Unkn Fem Ch Comments: You were seen today in the emergency department for blood in your urine as well as pain in the right lower quadrant of your abdomen. You have previously had a right sided ectopic with removal of your right adnexa. Your screening labs today are essentially normal with the exception of blood in your urine. However there is no infection in your urine. The CT of your abdomen did not show appendicitis. It also did not show an obvious kidney or ureter stone. However given the blood when you pee and the pain in the right lower quadrant of your abdomen I do suspect that you are likely passing a kidney stone or you have passed a kidney stone that we simply did not see on CAT scan. Please take Tylenol 500 mg with food or ibuprofen 600 mg with food 2-3 times a day for discomfort. I would expect if you have passed the stone that your symptoms are much better over the next few days. If markedly worse then return to the emergency department. It is important you follow-up with your primary care doctor to discuss this ED visit as well as the blood in your urine. Your urine should be rechecked. If not better you will need referral to a urologist to determine the source of the blood in your urine
[2022-02-01] MEDS ORDERED: IOVERSOL 320 50 ML VIAL ONE (14:16)
--- NOTE | 2022-02-01 14:30 | CT Report ---
PROCEDURE: Abdomen/Pelvis W INDICATIONS: pelvic pain; hematuria CONTRAST: IV CONTRAST: Optiray 320 ml: 100 PO CONTRAST: *NO PO CONTRAST TECHNIQUE: After the administration of IV contrast, 5 mm thick sections acquired from the diaphragms to the symp hysis. 5 mm thick coronal and sagittal reformats were acquired. For radiation dose reduction, the f ollowing was used: automated exposure control, adjustment of mA and/or kV according to patient size. COMPARISON: 09/27/2020 FINDINGS: Image quality: Excellent. ABDOMEN: Lung bases: Lung bases are clear. Heart size is normal. Solid organs: Liver and spleen are normal in size and enhancement. Gallbladder is normal Biliary s ystem is non dilated. Pancreas enhances normally. No adrenal nodules. Kidneys demonstrate normal s ize and enhancement, without hydronephrosis. Intrarenal calcifications may be obscured by contrast. No visible hydroureter. Peritoneum and bowel: A normal appendix is seen in the right lower quadrant. Bowel loops demonstrate normal wall thickness and caliber. No free air. Trace free pelvic fluid. Nodes and vessels: No retroperitoneal or mesenteric adenopathy by size criteria. Aorta and inferior vena cava are normal in size. Miscellaneous: No ventral hernias. PELVIS: Genitourinary: The uterus is normal size and diffusely hypervascular on the arterial phase. Probable nabothian cysts in the cervix. There is an involuting hypervascular cyst in the expected location of the left ovary. The right ovary was not well seen. The urinary bladder has a normal appearance. No c alcifications. Bladder wall thickness is normal. Miscellaneous: No inguinal hernias or adenopathy. Bones: No suspicious bony lesions. No vertebral body compression fractures. IMPRESSION: 1. Normal appendix. 2. No hydronephrosis or obvious obstructive uropathy. 3. Involuting left ovarian corpus luteum. The right ovary was not well seen. If there is further need to evaluate the right ovary, pelvic ultrasound would be recommended. Reviewed by: Kiya Tripp MD on 02/01/2022 2:28 PM PDT Approved by: Kiya Tripp MD on 02/01/2022 2:28 PM PDT Station ID: [id number]
[2022-02-01 14:39] VITALS: BP 112/71
[2022-02-01] MEDS: KETOROLAC 30 MG/ML VIAL IVP STA (14:50)
[2022-02-01] MEDS: IOVERSOL 320 50 ML VIAL IVP ONE (14:51)
== END 2022-02-01 15:03 | disposition home or self-care (01) ==
LOC: ED 12:23
DX: R10.31 Right lower quadrant pain (principal); R31.9 Hematuria, unspecified
CPT/HCPCS: 36415; 80053; 81001; 81003; 81025; 83690; 84702; 85025; 87086; 96374; 99282

== ENCOUNTER 2022-05-14 08:00 | Outpatient (CLI) | payer MEDICAID ==
[2022-05-14 15:07] LABS: BILIRUBIN,URINE NEGATIVE (NEGATIVE); GLUCOSE, URINE (UA) NEGATIVE (NEGATIVE); KETONES,URINE (UA) NEGATIVE (NEGATIVE); LEUKOCYTE ESTERASE, URINE MODERATE (NEGATIVE); NITRITE,URINE POSITIVE (NEGATIVE); OCCULT BLOOD,URINE LARGE (NEGATIVE); PROTEIN,URINE 100 mg/dL (NEGATIVE); UROBILINOGEN,URINE 0.2 (NORMAL) E.U./dL (NORMAL)
[2022-05-14 15:09] LABS: CLARITY,URINE HAZY (CLEAR)
[2022-05-14 15:28] LABS: BACTERIA,URINE Moderate /HPF (None Seen); SQUAMOUS EPITHELIAL CELL,UR RARE Squamous (<= Few); WBC,URINE >25 /HPF (0-5)
== END 2022-05-14 23:59 | disposition home or self-care (01) ==
LOC: LAB.S 08:00
PROVIDERS: ATTEND Physician Assistant Medical
DX: R31.9 Hematuria, unspecified (principal)
CPT/HCPCS: 81001; 87077; 87086; 87181

== ENCOUNTER 2022-06-18 08:00 | Outpatient (CLI) | payer MEDICAID ==
[2022-06-18 15:41] LABS: BILIRUBIN,URINE NEGATIVE (NEGATIVE); GLUCOSE, URINE (UA) NEGATIVE (NEGATIVE); KETONES,URINE (UA) NEGATIVE (NEGATIVE); LEUKOCYTE ESTERASE, URINE SMALL (NEGATIVE); NITRITE,URINE NEGATIVE (NEGATIVE); OCCULT BLOOD,URINE LARGE (NEGATIVE); PROTEIN,URINE NEGATIVE (NEGATIVE); UROBILINOGEN,URINE 0.2 (NORMAL) E.U./dL (NORMAL)
[2022-06-18 15:49] LABS: CLARITY,URINE HAZY (CLEAR)
[2022-06-18 15:58] LABS: BACTERIA,URINE Moderate /HPF (None Seen); SQUAMOUS EPITHELIAL CELL,UR FEW Squamous (<= Few)
== END 2022-06-18 23:59 | disposition home or self-care (01) ==
LOC: LAB.S 08:00
PROVIDERS: ATTEND Emergency Medicine
DX: N39.0 Urinary tract infection, site not specified (principal)
CPT/HCPCS: 81001; 87086; 87181

== ENCOUNTER 2022-09-30 15:10 | Day surgery (SDC) | payer MEDICAID ==
[2022-09-30 15:56] LABS: BASOPHILS # (AUTO) 0.1 10^3/uL (0.0-0.1); BASOPHILS % (AUTO) 0.7 %; EOSINOPHILS # (AUTO) 0.1 10^3/uL (0.0-0.7); EOSINOPHILS % (AUTO) 1.5 %; HCT - HEMATOCRIT 40.5 % (37.0-47.0); HGB - HEMOGLOBIN 13.6 g/dL (12.0-16.0); LYMPHOCYTES # (AUTO) 1.5 10^3/uL (1.5-3.5); LYMPHOCYTES % (AUTO) 20.5 %; MEAN CORPUSCULAR HEMOGLOBIN 30.2 pg (27.0-31.0); MEAN CORPUSCULAR HGB CONC 33.6 g/dL (32.0-36.0); MEAN CORPUSCULAR VOLUME 89.8 fL (81.0-99.0); MEAN PLATELET VOLUME 9.7 fL (7.9-10.8); MONOCYTES # (AUTO) 0.5 10^3/uL (0.0-1.0); MONOCYTES % (AUTO) 6.8 %; NEUTROPHILS % (AUTO) 70.4 %; PLT - PLATELET COUNT 219 10^3/uL (130-450); RED BLOOD COUNT 4.51 10^6/uL (4.20-5.40); RED CELL DISTRIBUTION WIDTH 13.2 % (12.0-15.0); WHITE BLOOD COUNT 7.2 x10^3/uL (4.8-10.8)
[2022-09-30 16:17] LABS: ALBUMIN 4.3 g/dL (3.2-5.5); ALBUMIN/GLOBULIN RATIO 1.4 (1.0-2.2); BILIRUBIN,TOTAL 0.8 mg/dL (0.2-1.0); CREATININE 0.6 mg/dL (0.4-1.0); TOTAL PROTEIN 7.4 g/dL (6.7-8.2)
--- NOTE | 2022-09-30 16:58 | Ultrasound Report ---
PROCEDURE: OB First Trimester w/TV INDICATIONS: vaginal bleeding, 5 weeks preg OUTSIDE/PRIOR DATING DATA: Last menstrual period (LMP): 08/26/2022. LMP-based estimated date of delivery (VITA): 06/02/2023. First dating scan (date and location): 09/30/2023. TECHNIQUE: Real-time scanning was performed of the fetus and maternal pelvic organs, with image documentation. Endovaginal scanning was also performed to better visualize the fetus and maternal ovaries. COMPARISON: None. FINDINGS: These images demonstrate a fluid collection in the left adnexa containing what is thought to represen t a yolk sac. There is also trace free fluid in the left adnexa. There is a thick rind of hypervascul ar echogenic signal surrounding the presumed gestational sac in the left adnexa ("ring of fire" sign) . The findings raise suspicion for possible left adnexal ectopic . Small volume free fluid i n the lower uterine segment is nonspecific. No cardiac activity is identified in the left adnex a or in the uterus. No pole identified in either location. IMPRESSION: No evidence of viable intrauterine . Left adnexal fluid collection containing a daughter cyst with adjacent hypervascular tissue. The find ings are suspicious for early left adnexal ectopic . Reviewed by: Raymundo Mejia MD on 09/30/2022 4:57 PM PST Approved by: Raymundo Mejia MD on 09/30/2022 4:57 PM PST Station ID: [id number]
--- NOTE | 2022-09-30 17:14 | ED Physician Documentation ---
History of Present Illness - Stated complaint Stated Complaint: BLEEDING/5WEEKS - Chief complaint Chief Complaint: Back Pain - History obtained from History obtained from: Patient - History of Present Illness Timing: Today Pain level max: 0 Pain level now: 0 - Additonal information Additional information: Patient is a 32-year-old female who presents the emergency department with vaginal bleeding and spotting for the past several days. She took a home test that was positive. She has a history of a right-sided ectopic that ruptured resulting in a right-sided salpingectomy. She states that she does not have any pain currently. Nothing makes it better or worse. 3 para 1. 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 : None HEENT: None Psych: None Musculoskeletal: None Derm: None - Past Surgical History Past Surgical History: No - Present Medications Home Medications: Ambulatory Orders Medication Instructions Recorded Confirmed No Known Home Medications 09/27/20 09/30/22 - Allergies Allergies/Adverse Reactions: Allergies Allergy/AdvReac Type Severity Reaction Status Date / Time No Known Drug Allergies Allergy Verified 09/30/22 15:25 - Social History Does the pt smoke?: No Smoking Status: Never smoker Does the pt drink ETOH?: No Does the pt have substance abuse?: No - Immunizations Immunizations are current?: Yes - POLST Patient has POLST: No PD ED PE NORMAL - Vitals Vital signs reviewed: Yes - General General: Alert and oriented X 3, No acute distress, Well developed/nourished - HEENT HEENT: Moist mucous membranes - Neck Neck: Supple, no meningeal sign - Cardiac Cardiac: RRR, Strong equal pulses - Respiratory Respiratory: No respiratory distress, Clear bilaterally - Abdomen Abdomen: Soft, Non tender, Non distended - Derm Derm: Warm and dry - Extremities Extremities: No edema - Neuro Neuro: Alert and oriented X 3 - Psych Psych: Normal mood, Normal affect Results - Vitals Vitals: Vital Signs - 24 hr 09/30/22 09/30/22 15:22 18:56 Temperature 36.9 C Heart Rate 85 89 Respiratory 20 16 Rate Blood Pressure 115/68 120/78 O2 Saturation 100 100 Oxygen O2 Source Room air - Labs Labs: Laboratory Tests 09/30/22 09/30/22 09/30/22 15:51 15:51 15:51 WBC 7.2 RBC 4.51 Hgb 13.6 Hct 40.5 MCV 89.8 MCH 30.2 MCHC 33.6 RDW 13.2 Plt Count 219 MPV 9.7 Neut # (Auto) 5.0 Lymph # (Auto) 1.5 [place] # (Auto) 0.5 Eos # (Auto) 0.1 Baso # (Auto) 0.1 Absolute Nucleated RBC 0.00 Nucleated RBC % 0.0 Sodium 135 Potassium 4.0 Chloride 102 Carbon Dioxide 25 Anion Gap 8.0 BUN 10 Creatinine 0.6 Estimated GFR (MDRD) 115 Glucose 93 Calcium 9.0 Total Bilirubin 0.8 AST 16 ALT 15 Alkaline Phosphatase 41 L Total Protein 7.4 Albumin 4.3 Globulin 3.1 Albumin/Globulin Ratio 1.4 Lipase 49 HCG, Quant Urine Color Urine Clarity Urine pH Ur Specific [place] Urine Protein Urine Glucose (UA) Urine Ketones Urine Occult Blood Urine Nitrite Urine Bilirubin Urine Urobilinogen Ur Leukocyte Esterase Ur Microscopic Review Urine Culture Comments SARS-CoV-2 (PCR) Blood Type A POSITIVE 09/30/22 09/30/22 09/30/22 15:51 18:02 18:25 WBC RBC Hgb Hct MCV MCH MCHC RDW Plt Count MPV Neut # (Auto) Lymph # (Auto) [place] # (Auto) Eos # (Auto) Baso # (Auto) Absolute Nucleated RBC Nucleated RBC % Sodium Potassium Chloride Carbon Dioxide Anion Gap BUN Creatinine Estimated GFR (MDRD) Glucose Calcium Total Bilirubin AST ALT Alkaline Phosphatase Total Protein Albumin Globulin Albumin/Globulin Ratio Lipase HCG, Quant 5528.00 Urine Color YELLOW Urine Clarity CLEAR Urine pH 6.0 Ur Specific [place] 1.020 Urine Protein NEGATIVE Urine Glucose (UA) NEGATIVE Urine Ketones TRACE Urine Occult Blood TRACE-INTA Urine Nitrite NEGATIVE Urine Bilirubin NEGATIVE Urine Urobilinogen 0.2 (NORMAL) Ur Leukocyte Esterase NEGATIVE Ur Microscopic Review NOT INDICATED Urine Culture Comments NOT INDICATED SARS-CoV-2 (PCR) NOT DETECTED Blood Type - Rads (name of study) OB ultrasound Radiology: Final report received, See rad report PD Medical Decision Making - ED course Complexity details: reviewed results, re-evaluated patient, considered differential, d/w patient, d/w family, d/w air quality consultant ED course: 32-year-old female with what appears to be left ectopic . She has had a prior right ectopic . Discussed the case with OB, Dr. Christianson, He came and evaluated the patient in the emergency department will take the patient to the operating room for definitive care. This document was made in part using voice recognition software. While efforts are made to proofread this document, sound alike and grammatical errors may occur. Departure - Departure Disposition: ED Transfer to [facility] Clinical Impression: Ectopic Qualifiers: Location of ectopic : ovarian Intrauterine status: without intrauterine Laterality: left Qualified Code(s): O00.202 - Left ovarian without intrauterine Condition: Stable Discharge Date/Time: 09/30/22 19:46
[2022-09-30 18:14] LABS: BILIRUBIN,URINE NEGATIVE (NEGATIVE); GLUCOSE, URINE (UA) NEGATIVE (NEGATIVE); KETONES,URINE (UA) TRACE mg/dL (NEGATIVE); LEUKOCYTE ESTERASE, URINE NEGATIVE (NEGATIVE); NITRITE,URINE NEGATIVE (NEGATIVE); OCCULT BLOOD,URINE TRACE-INTA (NEGATIVE); PROTEIN,URINE NEGATIVE (NEGATIVE); UROBILINOGEN,URINE 0.2 (NORMAL) E.U./dL (NORMAL)
[2022-09-30 18:16] LABS: CLARITY,URINE CLEAR (CLEAR)
--- NOTE | 2022-09-30 18:28 | HISTORY & PHYSICAL EXAMINATION ---
HPI - Admitted From Admitted from: ED - History Obtained From Records Reviewed: Other (ER physician) History obtained from: Patient Exam limitations: No limitations - History of Present Illness Severity at the worst: reports: Mild Pain Quality: reports: Dull Timing: reports: Intermittent PMH/PSH - Past Medical History Cardiovascular: positive: None Respiratory: positive: None Neuro: positive: None Endocrine/Autoimmune: positive: None GI: positive: None RADIATION CONTROL HEALTH PHYSICIST: positive: Ectopic : positive: None HEENT: positive: None Psych: positive: None Musculoskeletal: positive: None Derm: positive: None MRSA Hx?: No - Past Surgical History General: positive: EGD. negative: Other /RADIATION CONTROL HEALTH PHYSICIST: positive: Other (right salpingectomy) Social & Family Hx - Social History Does the pt smoke?: No Smoking Status: Never smoker Does the pt drink ETOH?: No Does the pt have substance abuse?: No - POLST Patient has POLST: No Meds/Allgy - Home Medications Home Medications: Ambulatory Orders Medication Instructions Recorded Confirmed No Known Home Medications 09/27/20 09/30/22 - Allergies Allergies/Adverse Reactions: Allergies Allergy/AdvReac Type Severity Reaction Status Date / Time No Known Drug Allergies Allergy Verified 09/30/22 15:25 Review of Systems - All Other Systems All Other Systems: reports: Reviewed and negative Exam - Vital Signs Reviewed Vital Signs: Yes Vital Signs: Vital Signs x48h Temp Pulse Resp BP Pulse Ox 09/30/22 15:22 98.4 F 85 20 115/68 100 - Physical Exam General Appearance: positive: No acute distress Eyes Bilateral: positive: Normal inspection ENT: positive: ENT inspection nml Neck: positive: Nml inspection Respiratory: positive: Chest non-tender Cardiovascular: positive: Regular rate & rhythm Abdomen: positive: Non-tender Back: positive: Nml inspection Skin: positive: Color nml Extremities: positive: Non-tender Neurologic/Psychiatric: positive: Oriented x3 Results - Lab Results Fish Bones: 09/30/22 15:51 09/30/22 15:51 Other Lab Results: Lab Results x24hrs 09/30/22 09/30/22 09/30/22 Range/Units 18:02 15:51 15:51 WBC (4.8-10.8) x10^3/uL RBC (4.20-5.40) 10^6/uL Hgb (12.0-16.0) g/dL Hct (37.0-47.0) % MCV (81.0-99.0) fL MCH (27.0-31.0) pg MCHC (32.0-36.0) g/dL RDW (12.0-15.0) % Plt Count (130-450) 10^3/uL MPV (7.9-10.8) fL Neut # (Auto) (1.5-6.6) 10^3/uL Lymph # (Auto) (1.5-3.5) 10^3/uL [place] # (Auto) (0.0-1.0) 10^3/uL Eos # (Auto) (0.0-0.7) 10^3/uL Baso # (Auto) (0.0-0.1) 10^3/uL Absolute Nucleated RBC x10^3/uL Nucleated RBC % /100WBC Sodium 135 (135-145) mmol/L Potassium 4.0 (3.5-5.0) mmol/L Chloride 102 (101-111) mmol/L Carbon Dioxide 25 (21-32) mmol/L Anion Gap 8.0 (6-13) BUN 10 (6-20) mg/dL Creatinine 0.6 (0.4-1.0) mg/dL Estimated GFR (MDRD) 115 (>89) Glucose 93 (70-100) mg/dL Calcium 9.0 (8.5-10.3) mg/dL Total Bilirubin 0.8 (0.2-1.0) mg/dL AST 16 (10-42) IU/L ALT 15 (10-60) IU/L Alkaline Phosphatase 41 L (42-121) IU/L Total Protein 7.4 (6.7-8.2) g/dL Albumin 4.3 (3.2-5.5) g/dL Globulin 3.1 (2.1-4.2) g/dL Albumin/Globulin Ratio 1.4 (1.0-2.2) Lipase 49 (22-51) U/L HCG, Quant 5528.00 mIU/mL Urine Color YELLOW Urine Clarity CLEAR (CLEAR) Urine pH 6.0 (5.0-7.5) PH Ur Specific [place] 1.020 (1.002-1.030) Urine Protein NEGATIVE (NEGATIVE) mg/dL Urine Glucose (UA) NEGATIVE (NEGATIVE) mg/dL Urine Ketones TRACE (NEGATIVE) mg/dL Urine Occult Blood TRACE-INTA (NEGATIVE) Urine Nitrite NEGATIVE (NEGATIVE) Urine Bilirubin NEGATIVE (NEGATIVE) Urine Urobilinogen 0.2 (NORMAL) (NORMAL) E.U./dL Ur Leukocyte Esterase NEGATIVE (NEGATIVE) Ur Microscopic Review NOT INDICATED Urine Culture Comments NOT INDICATED Blood Type 09/30/22 09/30/22 Range/Units 15:51 15:51 WBC 7.2 (4.8-10.8) x10^3/uL RBC 4.51 (4.20-5.40) 10^6/uL Hgb 13.6 (12.0-16.0) g/dL Hct 40.5 (37.0-47.0) % MCV 89.8 (81.0-99.0) fL MCH 30.2 (27.0-31.0) pg MCHC 33.6 (32.0-36.0) g/dL RDW 13.2 (12.0-15.0) % Plt Count 219 (130-450) 10^3/uL MPV 9.7 (7.9-10.8) fL Neut # (Auto) 5.0 (1.5-6.6) 10^3/uL Lymph # (Auto) 1.5 (1.5-3.5) 10^3/uL [place] # (Auto) 0.5 (0.0-1.0) 10^3/uL Eos # (Auto) 0.1 (0.0-0.7) 10^3/uL Baso # (Auto) 0.1 (0.0-0.1) 10^3/uL Absolute Nucleated RBC 0.00 x10^3/uL Nucleated RBC % 0.0 /100WBC Sodium (135-145) mmol/L Potassium (3.5-5.0) mmol/L Chloride (101-111) mmol/L Carbon Dioxide (21-32) mmol/L Anion Gap (6-13) BUN (6-20) mg/dL Creatinine (0.4-1.0) mg/dL Estimated GFR (MDRD) (>89) Glucose (70-100) mg/dL Calcium (8.5-10.3) mg/dL Total Bilirubin (0.2-1.0) mg/dL AST (10-42) IU/L ALT (10-60) IU/L Alkaline Phosphatase (42-121) IU/L Total Protein (6.7-8.2) g/dL Albumin (3.2-5.5) g/dL Globulin (2.1-4.2) g/dL Albumin/Globulin Ratio (1.0-2.2) Lipase (22-51) U/L HCG, Quant mIU/mL Urine Color Urine Clarity (CLEAR) Urine pH (5.0-7.5) PH Ur Specific [place] (1.002-1.030) Urine Protein (NEGATIVE) mg/dL Urine Glucose (UA) (NEGATIVE) mg/dL Urine Ketones (NEGATIVE) mg/dL Urine Occult Blood (NEGATIVE) Urine Nitrite (NEGATIVE) Urine Bilirubin (NEGATIVE) Urine Urobilinogen (NORMAL) E.U./dL Ur Leukocyte Esterase (NEGATIVE) Ur Microscopic Review Urine Culture Comments Blood Type A POSITIVE Impression/Plan - Problem List Problem List: This 32-year-old 3 para 1 ectopic 1 came to the emergency room with a chief complaint of vaginal bleeding. She had a history of right ruptured tubal ectopic which ended laparoscopic right salpingectomy. She was not actually trying to get this time but she did get and a home test was positive. She was having vaginal spotting and she came to the emergency room. Ultrasound study showed presence of left adnexal . There was no gestational sac in the uterus. Her vital signs normal and her hemoglobin was a more than 13. We discussed about the management plan. She was informed the possibility of using medical treatment which has pros and cons and also laparoscopic procedure for salpingectomy versus salpingostomy. After she learned the pros and cons she agreed to have left salpingectomy because she has high risk of having repeat ectopic if we preserve her tube. She was well aware of the possibility of using IVF and she is thinking about that option in the future should she want to get further. No contraindication was noted for the procedure and she consented the surgical procedure. Impression: left tubal ectopic P: laparoscopic left salpingectomy
[2022-09-30] MEDS ORDERED: PROPOFOL 200 MG/20 ML VIAL IVP ONE (18:35)
[2022-09-30] MEDS ORDERED: SUCCINYLCHOLINE 200 MG/10 ML VIAL ONE (18:38)
[2022-09-30] MEDS ORDERED: fentaNYL 100 MCG/2 ML VIAL ONE ×2 (18:39→21:23)
[2022-09-30] MEDS ORDERED: MIDAZOLAM 2 MG/2 ML VIAL ONE (18:39)
[2022-09-30] MEDS ORDERED: BUPIVACAINE 0.5% PF 30 ML VIAL ONE (18:57)
[2022-09-30] MEDS ORDERED: LIDOCAINE MPF 2%-EPI 1:200000 20 ML VIAL ONE (18:57)
--- NOTE | 2022-09-30 19:00 | ANESTHESIA ---
Pre-Anesthesia VS, & Labs - Diagnosis ectopic - Procedure laparoscopic removal of ectopic Vital Signs: Temp Pulse Resp BP Pulse Ox O2 Flow Rate 36.9 C 89 16 120/78 100 09/30/22 15:22 09/30/22 18:56 09/30/22 18:56 09/30/22 18:56 09/30/22 18:56 Height: 5 ft 8 in Weight (kg): 70.76 kg Body Mass Index: 23.7 BMI Classification: Normal - NPO Last Fluid Intake: 1630-mocha latte Last Food Intake: 1030 - Is Patient ?: Yes - Lab Results Current Lab Results: Laboratory Tests 09/30/22 15:51: HCG, Quant 5528.00 09/30/22 15:51: Sodium 135, Potassium 4.0, Chloride 102, Carbon Dioxide 25, Anion Gap 8.0, BUN 10, Creatinine 0.6, Estimated GFR (MDRD) 115, Glucose 93, Calcium 9.0, Total Bilirubin 0.8, AST 16, ALT 15, Alkaline Phosphatase 41 L, Total Protein 7.4, Albumin 4.3, Globulin 3.1, Albumin/Globulin Ratio 1.4, Lipase 49 09/30/22 15:51: WBC 7.2, RBC 4.51, Hgb 13.6, Hct 40.5, MCV 89.8, MCH 30.2, MCHC 33.6, RDW 13.2, Plt Count 219, MPV 9.7, Neut # (Auto) 5.0, Lymph # (Auto) 1.5, [place] # (Auto) 0.5, Eos # (Auto) 0.1, Baso # (Auto) 0.1, Absolute Nucleated RBC 0.00, Nucleated RBC % 0.0 09/30/22 15:51: Blood Type A POSITIVE Lab results reviewed: Yes Fish Bones: 09/30/22 15:51 09/30/22 15:51 Home Medications and Allergies No Known Home Medications 09/27/20 Allergies/Adverse Reactions: Allergies Allergy/AdvReac Type Severity Reaction Status Date / Time No Known Drug Allergies Allergy Verified 09/30/22 15:25 Anes History & Medical History - Anesthetic History Anesthesia Complications: reports: No previous complications - Medical History Cardiovascular: reports: None Pulmonary: reports: None Gastrointestinal: reports: Hepatitis (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 denies: Other Gynecologic: reports: Other (right salpingectomy) Exam General: Alert, Oriented x3, Cooperative, No acute distress Dental: WNL Mouth Openin Fingerbreadth Neck Mobility: Normal Mallampati classification: I Thyromental Distance: 4-6 cm Mental/Cognitive Status: Alert/Oriented X3, Normal for patient Plan Anesthesia Type: General (RSI) Consent for Procedure(s) Verified and Reviewed: Yes Code Status: Attempt Resuscitation ASA classification: 2-Mild systemic disease Is this case an emergency?: Yes
[2022-09-30] MEDS ORDERED: HYDROmorphone 0.5 MG/0.5 ML SYRINGE IVP PRN (19:01)
[2022-09-30] MEDS ORDERED: NALOXONE 0.4 MG/ML VIAL IVP PRN (19:01)
[2022-09-30] MEDS ORDERED: MORPHINE 2 MG/ML CARPUJECT IVP PRN (19:01)
[2022-09-30] MEDS ORDERED: ONDANSETRON 4 MG/2 ML VIAL IVP PRN ×2 (19:01→22:26)
[2022-09-30] MEDS ORDERED: ATROPINE ABBOJECT 1 MG/10 ML SYRINGE IVP PRN (19:01)
[2022-09-30] MEDS ORDERED: ceFAZolin 1 GM VIAL ONE (19:54)
[2022-09-30] MEDS ORDERED: ROCURONIUM 50 MG/5 ML VIAL ONE (20:00)
[2022-09-30] MEDS ORDERED: LACTATED RINGERS 1,000 ML IV SCH ×2 (20:00→23:00)
[2022-09-30] MEDS ORDERED: BUPIVACAINE 0.5% PF 30 ML VIAL INFIL ONE ×2 (20:15)
[2022-09-30] MEDS ORDERED: DEXAMETHASONE 4 MG/ML VIAL ONE (20:32)
[2022-09-30] MEDS ORDERED: ONDANSETRON 4 MG/2 ML VIAL ONE (20:44)
[2022-09-30] MEDS ORDERED: SUGAMMADEX 200 MG/2 ML VIAL IVP ONE (20:44)
[2022-09-30] MEDS ORDERED: KETOROLAC 30 MG/ML VIAL ONE (20:51)
[2022-09-30] MEDS ORDERED: HYDROmorphone 1 MG/ML CARPUJECT ONE ×2 (20:54→21:59)
[2022-09-30] MEDS ORDERED: LACTATED RINGERS 200 ML IV ONE (21:13)
[2022-09-30] MEDS: fentaNYL 100 MCG/2 ML VIAL IVP PRN ×2 (21:27→21:47)
--- NOTE | 2022-09-30 21:28 | OPERATIVE REPORT ---
Operative Report - General Procedure Date: 09/30/22 Planned Procedure: Laparoscopic left salpingectomy Pre-Op Diagnosis: Left tubal ectopic Procedure Performed: Laparoscopic left salpingectomy Post Op Diagnosis: Left tubal ectopic - Procedure Note Primary Surgeon: Dr. Christianson Anesthesia Technique: General ET tube Pathology: Left tube with products of conception IV Fluids (mL): 1,000 Estimated Blood Loss (mL): 25 Urine Output (mL): 300 Indications: Left tubal ectopic Findings: unruptured left tubal In the ampulla and small amount of free blood in the posterior cul-de-sac both ovaries were normal right tube was surgically absent. Uterine depth 8 cm.
[2022-09-30] MEDS ORDERED: ONDANSETRON ODT 4 MG TABLET TL PRN (22:26)
[2022-09-30] MEDS ORDERED: MORPHINE 10 MG/ML VIAL IVP PRN (22:26)
--- NOTE | 2022-09-30 22:26 | Discharge Plan ---
Discharge Plan Problem Reviewed?: Yes Disposition: Home, Self Care Condition: Stable Diet: Regular Activity Restrictions: Activity as Tolerated Shower Restrictions: No Driving Restrictions: Yes (1 week) Weight Bearing: Partial Weight (less than 20 lbs until postop 1 week check) No Smoking: If you smoke, Please STOP! Call for help. Follow-up with: Jordan Guillen MD [Provider Admit Priv/Credential] -
[2022-09-30] MEDS ORDERED: ZOLPIDEM 5 MG TABLET PO PRN (22:40)
[2022-10-01] MEDS: ACETAMINOPHEN 500 MG TABLET PO SCH ×2 (00:08→07:48)
[2022-10-01] MEDS: IBUPROFEN 600 MG TABLET PO SCH ×2 (00:08→06:04)
[2022-10-01] MEDS: oxyCODONE 5 MG TABLET PO PRN ×2 (02:16→07:15)
[2022-10-01 08:03] VITALS: BP 110/64
[2022-10-01] MEDS ORDERED: DOCUSATE SODIUM 100 MG CAPSULE PO SCH (09:00)
--- NOTE | 2022-10-02 12:14 | ANESTHESIA POST OP EVALUATION ---
Anesthesia Post Eval - Post Anesthesia Eval Vitals: Last Vital Signs Temp 36.9 C 10/01/22 08:00 Pulse 84 10/01/22 08:00 Resp 16 10/01/22 08:00 BP 110/64 10/01/22 08:00 Pulse Ox 99 10/01/22 08:00 O2 Flow Rate CV Function Including HR & BP: Stable Pain Control: Satisfactory Nausea & Vomiting: Negative Mental Status: Baseline Respiratory Status: Airway Patent Hydration Status: Satisfactory Anesthesia Complications: None
== END 2022-10-01 07:45 | disposition home or self-care (01) ==
LOC: ED 15:10 → SDS 18:00 → FBP 21:54 → SDS 10-01 07:45
PROVIDERS: ATTEND Obstetrics & Gynecology
DX: O00.102 Left tubal pregnancy without intrauterine pregnancy (principal); Z20.822 Contact with and (suspected) exposure to COVID-19
CPT/HCPCS: 36415; 59151; 76801; 76817; 80053; 81003; 83690; 84702; 85025; 86900; 86901; 87635; 99283; 99285; A9270; J0330; J1170; J7120; 81001; 87086

== ENCOUNTER 2023-01-15 19:31 | Emergency (ER) | payer MEDICAID ==
[2023-01-15 19:42] VITALS: BP 139/91
[2023-01-15 20:09] LABS: RAPID STREP SCREEN Negative (Negative)
[2023-01-15 22:30] LABS: HCG UR QUAL NEGATIVE
--- NOTE | 2023-01-16 09:36 | ED Physician Documentation ---
History of Present Illness - Stated complaint Stated Complaint: THROAT PX/CHECK UP - Chief complaint Chief Complaint: Heent - History obtained from History obtained from: Patient, Family, Friend - Additonal information Additional information: HPI is from patient as well as a friend of the patient who is in the ED at patient's bedside. Patient says she had an ectopic a few months ago which was treated surgically at [facility]. She says that since that time, she has had episodic depression. She says that she comes to the emergency department at this time due to concern on the part of family and her friend regarding patient's state of mind, particularly her feelings of depression. Patient strongly denies SI, HI, AH, VH. Review of Systems Psychiatric: reports: Depressed. 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: None : None HEENT: None Psych: None Musculoskeletal: None Derm: None - Past Surgical History Past Surgical History: No General: EGD /COLLECTION DEVELOPMENT LIBRARIAN: Other (right salpingectomy) - Present Medications Home Medications: Ambulatory Orders Medication Instructions Recorded Confirmed Acetaminophen [Acetaminophen Extra 1,000 mg PO Q8H PRN #60 tablet 09/30/22 Strength] Ibuprofen [Motrin] 600 mg PO Q6H PRN #30 tab 09/30/22 oxyCODONE [Roxicodone] 2.5 - 5 mg PO Q4H PRN #24 tablet 09/30/22 - Allergies Allergies/Adverse Reactions: Allergies Allergy/AdvReac Type Severity Reaction Status Date / Time No Known Drug Allergies Allergy Verified 01/16/23 08:20 - Social History Does the pt smoke?: No Smoking Status: Never smoker Does the pt drink ETOH?: No Does the pt have substance abuse?: No - Immunizations Immunizations are current?: Yes - POLST Patient has POLST: No PD ED PE NORMAL - Vitals Vital signs reviewed: Yes - General General: Alert and oriented X 3, No acute distress, Well developed/nourished - Cardiac Cardiac: RRR, No murmur - Respiratory Respiratory: No respiratory distress, Clear bilaterally - Neuro Neuro: Alert and oriented X 3 Eye Opening: Spontaneous Motor: Obeys Commands Verbal: Oriented GCS Score: 15 - Psych Psych: Normal mood, Normal affect Results - Vitals Vitals: Vital Signs - 24 hr 01/15/23 01/15/23 19:33 19:48 Temperature 37.0 C Heart Rate 80 Respiratory 16 15 Rate Blood Pressure 139/91 H O2 Saturation 100 Oxygen O2 Source Room air - Labs Labs: Microbiology 01/15/23 19:30 Group A Strep Throat Culture - Preliminary Throat CULTURE IN PROGRESS. RESULTS TO FOLLOW. Laboratory Tests 01/15/23 01/15/23 01/15/23 19:30 22:18 22:24 TSH 1.79 Urine HCG, Qual NEGATIVE Group A Strep Rapid Negative PD Medical Decision Making - ED course Complexity details: reviewed old records, reviewed results, re-evaluated patient, considered differential, d/w patient ED course: Patient admits to having episodes of feeling depressed since September when she had surgical intervention for left ectopic . She strongly denies suicidal ideation, homicidal ideation, auditory hallucinations, and visual hallucinations. Rapid strep was undertaken and the result was negative; this was ordered based on information gathered by ED RN when patient was first triaged which included a sore throat, but as I gather more information, it became apparent per patient's HPI that she has had a sore throat since September when she had the surgery. A urine hCG was also performed and the result is negative. TSH was performed and this result was within normal limits. Patient says she feels safe at home and is comfortable with discharge home. I encouraged her to contact her primary care provider to arrange for next fill appointment for follow-up and reevaluation. She is encouraged to return to the emergency department at any time she feels she needs to be reevaluated on an emergent basis. Departure - Departure Disposition: 01 Home, Self Care Clinical Impression: Sore throat Condition: Good Instructions: ED Symptoms No Dx Comments: Your rapid strep test resulted negative. Your urine test was negative. The TSH was normal (1.79, normal range is 0.34-5.60). This stands for "thyroid stimulating hormone", and is considered the screening test for thyroid problems. This normal result would strongly suggest against an over or underactive thyroid. Follow-up with your primary care provider, next available appointment, for reevaluation. Discharge Date/Time: 01/15/23 23:30
== END 2023-01-15 23:30 | disposition home or self-care (01) ==
LOC: ED 19:31
DX: J02.9 Acute pharyngitis, unspecified (principal)
CPT/HCPCS: 36415; 81025; 84443; 87070; 87430; 99283

== ENCOUNTER 2023-01-16 07:27 | Outpatient (CLI) | payer MEDICAID | END 2023-01-16 07:28 | disposition critical access hospital (66) | LOC: EMS 07:27 | DX: R46.89 Other symptoms and signs involving appearance and behavior (principal) | CPT/HCPCS: A0425; A0429; A0999 ==

== ENCOUNTER 2023-01-16 07:51 | Emergency (ER) | payer MEDICAID ==
--- NOTE | 2023-01-16 08:14 | ED Physician Documentation ---
PD HPI MHE - Stated complaint Stated Complaint: AMS - History obtained from History obtained from: Patient - History of Present Illness Primary symptom: Other (Abnormal behavior of wandering from the house on her own without notifying folk, minimal eating, new onset really just thinking. These were concerning to her family and friends. No suicidal ideation or attempts.) Timing - onset: How many weeks ago (The patient has had symptoms for several weeks to couple of months. There had been some depressed mood after an ectopic /miscarriage. No history of psychiatric disorders.) Contributing factors: Other (The and the patient's close friend states there had not been any obvious interpersonal or social problems. However the patient had abruptly filed for divorce from her and has also been wandering at night around the neighborhood and also in different for conversation.). No: Substance abuse - ETOH, Substance abuse - drugs Similar symptoms before: Has not had sx before Recently seen: Emergency Dept (last evening for sore throat and /friend described the above symptoms, but pt stated she was feeling fine and presented as calm and no distress.) Review of Systems Constitutional: denies: Fever Throat: reports: Sore throat Respiratory: denies: Cough GI: denies: Abdominal Pain, Vomiting, Diarrhea Neurologic: denies: Generalized weakness, Altered mental status, Headache PD PAST MEDICAL HISTORY - Past Medical History Cardiovascular: None Respiratory: None Neuro: None Endocrine/Autoimmune: None GI: None 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 : None HEENT: None Psych: None Musculoskeletal: None Derm: None - Past Surgical History Past Surgical History: No General: EGD /BREAKING MACHINE OPERATOR: Other (right salpingectomy) - Present Medications Home Medications: Ambulatory Orders Medication Instructions Recorded Confirmed Acetaminophen [Acetaminophen Extra 1,000 mg PO Q8H PRN #60 tablet 09/30/22 Strength] Ibuprofen [Motrin] 600 mg PO Q6H PRN #30 tab 09/30/22 oxyCODONE [Roxicodone] 2.5 - 5 mg PO Q4H PRN #24 tablet 09/30/22 - Allergies Allergies/Adverse Reactions: Allergies Allergy/AdvReac Type Severity Reaction Status Date / Time No Known Drug Allergies Allergy Verified 01/16/23 08:20 - Social History Does the pt smoke?: No Smoking Status: Never smoker Does the pt drink ETOH?: No Does the pt have substance abuse?: No - Immunizations Immunizations are current?: Yes - POLST Patient has POLST: No PD ED PE NORMAL - Vitals Vital signs reviewed: Yes - General General: Alert and oriented X 3, No acute distress, Well developed/nourished, Other (The patient has a very calm affect and answers questions appropriately and openly. She denies any suicidal ideation. She denies any substance use.) - HEENT HEENT: PERRL, EOMI - Cardiac Cardiac: RRR, No murmur - Respiratory Respiratory: Clear bilaterally - Abdomen Abdomen: Soft, Non tender - Derm Derm: Normal color, Warm and dry - Extremities Extremities: Normal ROM s pain - Neuro Neuro: Alert and oriented X 3, No motor deficit, No sensory deficit, Normal speech Eye Opening: Spontaneous Motor: Obeys Commands Verbal: Oriented GCS Score: 15 Results - Vitals Vitals: Vital Signs - 24 hr 01/16/23 01/16/23 07:55 08:30 Temperature 37 C Heart Rate 93 95 Respiratory 12 14 Rate Blood Pressure 132/85 H O2 Saturation 98 100 Oxygen O2 Source Room air - Labs Labs: Laboratory Tests 01/16/23 01/16/23 01/16/23 08:25 08:35 08:35 WBC 5.7 RBC 4.72 Hgb 14.2 Hct 42.2 MCV 89.4 MCH 30.1 MCHC 33.6 RDW 12.4 Plt Count 202 MPV 9.9 Neut # (Auto) Not Reportable Lymph # (Auto) Not Reportable [place] # (Auto) Not Reportable Eos # (Auto) Not Reportable Baso # (Auto) Not Reportable Absolute Nucleated RBC Not Reportable Total Counted 100 Band Neuts % (Manual) 2 Reactive Lymphs % (Man) 4 Abnorm Lymph % (Manual) 0 Nucleated RBC % Not Reportable Neutrophils # (Manual) 4.1 Lymphocytes # (Manual) 1.3 L Monocytes # (Manual) 0.3 Eosinophils # (Manual) 0.1 Basophils # (Manual) 0.0 Differential Comment MANUAL DIFFERENTIAL Platelet Estimate NORMAL (130-450,000) Platelet Morphology NORMAL APPEARANCE RBC Morph Micro Appear NORMAL APPEARANCE Sodium 138 Potassium 3.8 Chloride 104 Carbon Dioxide 23 Anion Gap 11.0 BUN 7 Creatinine 0.6 Estimated GFR (MDRD) 115 Glucose 98 Calcium 9.0 Total Bilirubin 1.3 H AST 28 ALT 18 Alkaline Phosphatase 50 Total Protein 8.0 Albumin 4.8 Globulin 3.2 Albumin/Globulin Ratio 1.5 Lipase 41 Urine Color LIGHT YELLOW Urine Clarity CLEAR Urine pH 6.0 Ur Specific [place] <=1.005 Urine Protein NEGATIVE Urine Glucose (UA) NEGATIVE Urine Ketones 40 H Urine Occult Blood TRACE-INTA Urine Nitrite NEGATIVE Urine Bilirubin NEGATIVE Urine Urobilinogen 0.2 (NORMAL) Ur Leukocyte Esterase NEGATIVE Ur Microscopic Review NOT INDICATED Urine Culture Comments NOT INDICATED Urine HCG, Qual NEGATIVE Salicylates < 6.0 Urine Opiates Screen NEGATIVE Ur Oxycodone Screen NEGATIVE Urine Methadone Screen NEGATIVE Ur Propoxyphene Screen NEGATIVE Acetaminophen < 10 L Ur Barbiturates Screen NEGATIVE Ur Tricyclics Screen NEGATIVE Ur Phencyclidine Scrn NEGATIVE Ur Amphetamine Screen NEGATIVE U Methamphetamines Scrn NEGATIVE U Benzodiazepines Scrn NEGATIVE Urine Cocaine Screen NEGATIVE U Cannabinoids Screen NEGATIVE Ethyl Alcohol < 5.0 SARS-CoV-2 (PCR) 01/16/23 13:24 WBC RBC Hgb Hct MCV MCH MCHC RDW Plt Count MPV Neut # (Auto) Lymph # (Auto) [place] # (Auto) Eos # (Auto) Baso # (Auto) Absolute Nucleated RBC Total Counted Band Neuts % (Manual) Reactive Lymphs % (Man) Abnorm Lymph % (Manual) Nucleated RBC % Neutrophils # (Manual) Lymphocytes # (Manual) Monocytes # (Manual) Eosinophils # (Manual) Basophils # (Manual) Differential Comment Platelet Estimate Platelet Morphology RBC Morph Micro Appear Sodium Potassium Chloride Carbon Dioxide Anion Gap BUN Creatinine Estimated GFR (MDRD) Glucose Calcium Total Bilirubin AST ALT Alkaline Phosphatase Total Protein Albumin Globulin Albumin/Globulin Ratio Lipase Urine Color Urine Clarity Urine pH Ur Specific [place] Urine Protein Urine Glucose (UA) Urine Ketones Urine Occult Blood Urine Nitrite Urine Bilirubin Urine Urobilinogen Ur Leukocyte Esterase Ur Microscopic Review Urine Culture Comments Urine HCG, Qual Salicylates Urine Opiates Screen Ur Oxycodone Screen Urine Methadone Screen Ur Propoxyphene Screen Acetaminophen Ur Barbiturates Screen Ur Tricyclics Screen Ur Phencyclidine Scrn Ur Amphetamine Screen U Methamphetamines Scrn U Benzodiazepines Scrn Urine Cocaine Screen U Cannabinoids Screen Ethyl Alcohol SARS-CoV-2 (PCR) NOT DETECTED PD Medical Decision Making - ED course Complexity details: reviewed results, considered differential (The patient has had some depressed mood after an ectopic several months ago. She is aloof and less interactive with and friends. She has been going for walks and wandering during the night. She has seemed more hinduism which is unusual for her.), d/w patient ED course: The patient is calm to talk to her and she answers openly when I ask her about current and recent events. She states she is not sure why her and friends are upset about her wanting to take walks on her own. She feels she has the right to do that. She does not seem upset or angry. I asked how she had been coping with the stress and emotion of the recent ectopic and she states she is been more content template shift with herself and also turning to christianity such as reading the Bible. Her one of her friends that I talked with described her as being hyperreligious though the patient states she is just been reading texts at home herself. She has not attended services. With regard to the filing for divorce, she states she just unhappy with her marriage. She really does not express any anger or abnormal thought processing. The patient was seen by NAYANA Jauregui. Apparently the patient declined to talk with her so the main information was from and friends. Upon that information, the DCR stated she was going to detain the patient due to safety. The DCR went to her office to work on paperwork. The patient had been sitting comfortably and cooperatively in the ER. However as the ER was in its normal function, the patient did manage to leave without being seen. She had not been suicidal so did not have a one-to-one watch. This was unexpected. The icer air conditioning's office is notified to look for her and will bring her back. Nursing will notify her . Departure - Departure Disposition: ED [place] Condition: Stable Discharge Date/Time: 01/16/23 16:50
[2023-01-16 08:24] VITALS: BP 132/85
[2023-01-16 08:42] LABS: MUDS CUTOFF CONCENTRATIONS CUTOFF CONC BELOW:
[2023-01-16 08:45] LABS: BILIRUBIN,URINE NEGATIVE (NEGATIVE); GLUCOSE, URINE (UA) NEGATIVE (NEGATIVE); KETONES,URINE (UA) 40 mg/dL (NEGATIVE); LEUKOCYTE ESTERASE, URINE NEGATIVE (NEGATIVE); NITRITE,URINE NEGATIVE (NEGATIVE); OCCULT BLOOD,URINE TRACE-INTA (NEGATIVE); PROTEIN,URINE NEGATIVE (NEGATIVE); UROBILINOGEN,URINE 0.2 (NORMAL) E.U./dL (NORMAL)
[2023-01-16 08:47] LABS: BASOPHILS % (AUTO) 0.4 %; EOSINOPHILS % (AUTO) 0.2 %; MONOCYTES % (AUTO) 5.8 %; PLT - PLATELET COUNT 202 10^3/uL (130-450)
[2023-01-16 08:48] LABS: CLARITY,URINE CLEAR (CLEAR)
[2023-01-16 08:49] LABS: HCG UR QUAL NEGATIVE
[2023-01-16 08:50] LABS: HCT - HEMATOCRIT 42.2 % (37.0-47.0); HGB - HEMOGLOBIN 14.2 g/dL (12.0-16.0); LYMPHOCYTES % (AUTO) 21.5 %; MEAN CORPUSCULAR HEMOGLOBIN 30.1 pg (27.0-31.0); MEAN CORPUSCULAR HGB CONC 33.6 g/dL (32.0-36.0); MEAN CORPUSCULAR VOLUME 89.4 fL (81.0-99.0); MEAN PLATELET VOLUME 9.9 fL (7.9-10.8); NEUTROPHILS % (AUTO) 71.7 %; RED BLOOD COUNT 4.72 10^6/uL (4.20-5.40); RED CELL DISTRIBUTION WIDTH 12.4 % (12.0-15.0); WHITE BLOOD COUNT 5.7 x10^3/uL (4.8-10.8)
[2023-01-16 08:51] LABS: ABNORMAL LYMPHS % (MANUAL) 0 %
[2023-01-16 08:54] LABS: AMPHETAMINE SCREEN,URINE NEGATIVE (NEGATIVE); BARBITURATE SCREEN,UR NEGATIVE (NEGATIVE); BENZODIAZEPINES SCREEN, URINE NEGATIVE (NEGATIVE); COCAINE SCREEN URINE NEGATIVE (NEGATIVE); METHADONE SCREEN, URINE NEGATIVE (NEGATIVE); METHAMPHETAMINES SCREEN, URINE NEGATIVE (NEGATIVE); OPIATE SCREEN, URINE NEGATIVE (NEGATIVE); OXYCODONE SCREEN, URINE NEGATIVE (NEGATIVE); PROPOXYPHENE SCREEN, URINE NEGATIVE (NEGATIVE); THC CANNABINOID SCREEN, URINE NEGATIVE (NEGATIVE); TRICYCLIC ANTIDEPRESSANT,URINE NEGATIVE (NEGATIVE)
[2023-01-16 08:57] LABS: ACETAMINOPHEN < 10 ug/mL (10-30); ALBUMIN 4.8 g/dL (3.2-5.5); ALBUMIN/GLOBULIN RATIO 1.5 (1.0-2.2); ALKALINE PHOSPHATASE 50 IU/L (42-121); ALT ALANINE AMINOTRANSFERASE 18 IU/L (10-60); AST ASPARTATE AMINOTRANSFERASE 28 IU/L (10-42); BILIRUBIN,TOTAL 1.3 mg/dL (0.2-1.0); BUN - BLOOD UREA NITROGEN 7 mg/dL (6-20); CARBON DIOXIDE - CO2 23 mmol/L (21-32); CHLORIDE 104 mmol/L (101-111); CREATININE 0.6 mg/dL (0.4-1.0); ETOH - ETHANOL < 5.0 mg/dL; GFR - MDRD 115 (>89); GLUCOSE 98 mg/dL (70-100); LIPASE 41 U/L (22-51); POTASSIUM 3.8 mmol/L (3.5-5.0); SALICYLATE < 6.0 mg/dL; SODIUM 138 mmol/L (135-145)
[2023-01-16 09:10] LABS: BAND NEUTROPHILS % (MANUAL) 2 %; DIFFERENTIAL COMMENT MANUAL DIFFERENTIAL; EOSINOPHILS # (MANUAL) 0.1 10^3/uL (0-0.7); LYMPHOCYTES # (MANUAL) 1.3 10^3/uL (1.5-3.5); LYMPHOCYTES % (MANUAL) 18 %; MONOCYTES # (MANUAL) 0.3 10^3/uL (0.0-1.0); NEUTROPHILS # (MANUAL) 4.1 10^3/uL (1.5-6.6); PLATELET ESTIMATE, MANUAL NORMAL (130-450,000) (NORMAL); PLATELET MORPHOLOGY NORMAL APPEARANCE (NORMAL); RBC MORPHOLOGY (MULTIPLE) NORMAL APPEARANCE (NORMAL); REACTIVE LYMPHS % (MANUAL) 4 %
[2023-01-16] MEDS ORDERED: ONDANSETRON ODT 4 MG TABLET TL STA (10:58)
== END 2023-01-16 16:50 | disposition left against medical advice (07) ==
LOC: EDUNIT# → ED 07:51
DX: F32.9 Major depressive disorder, single episode, unspecified (principal); Z20.822 Contact with and (suspected) exposure to COVID-19
CPT/HCPCS: 36415; 80053; 80306; 80307; 80320; 80329; 81003; 81025; 83690; 85025; 87635; 99282; 99284; Q0162; 81001; 87086

== ENCOUNTER 2023-01-21 23:30 | Emergency (ER) | payer MEDICAID ==
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
[2023-01-21] MEDS ORDERED: KETAMINE 500 MG/10 ML VIAL IM STA (23:46)
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
[2023-01-22] MEDS: KETAMINE 500 MG/10 ML VIAL IM STA ×2 (00:28→02:46)
[2023-01-22] MEDS ORDERED: traZODone 50 MG TABLET PO STA (00:46)
[2023-01-22 00:51] LABS: MUDS CUTOFF CONCENTRATIONS CUTOFF CONC BELOW:
[2023-01-22 00:55] LABS: BASOPHILS % (AUTO) 0.6 %; EOSINOPHILS % (AUTO) 0.6 %; HCT - HEMATOCRIT 38.4 % (37.0-47.0); LYMPHOCYTES # (AUTO) 1.1 10^3/uL (1.5-3.5); LYMPHOCYTES % (AUTO) 23.4 %; MEAN CORPUSCULAR HGB CONC 33.9 g/dL (32.0-36.0); MEAN CORPUSCULAR VOLUME 88.7 fL (81.0-99.0); MEAN PLATELET VOLUME 9.9 fL (7.9-10.8); MONOCYTES # (AUTO) 0.4 10^3/uL (0.0-1.0); MONOCYTES % (AUTO) 7.2 %; NEUTROPHILS # (AUTO) 3.3 10^3/uL (1.5-6.6); PLT - PLATELET COUNT 222 10^3/uL (130-450); RED BLOOD COUNT 4.33 10^6/uL (4.20-5.40); RED CELL DISTRIBUTION WIDTH 12.6 % (12.0-15.0); WHITE BLOOD COUNT 4.9 x10^3/uL (4.8-10.8)
[2023-01-22 00:56] LABS: BILIRUBIN,URINE NEGATIVE (NEGATIVE); GLUCOSE, URINE (UA) NEGATIVE (NEGATIVE); KETONES,URINE (UA) NEGATIVE (NEGATIVE); LEUKOCYTE ESTERASE, URINE NEGATIVE (NEGATIVE); NITRITE,URINE NEGATIVE (NEGATIVE); OCCULT BLOOD,URINE LARGE (NEGATIVE); PROTEIN,URINE NEGATIVE (NEGATIVE); UROBILINOGEN,URINE 0.2 (NORMAL) E.U./dL (NORMAL)
[2023-01-22 00:57] LABS: CLARITY,URINE CLEAR (CLEAR)
[2023-01-22 01:04] LABS: BACTERIA,URINE None Seen /HPF (None Seen); RBC,URINE TNTC /HPF (0-5); SQUAMOUS EPITHELIAL CELL,UR RARE Squamous (<= Few); WBC,URINE 0-3 /HPF (0-5)
[2023-01-22 01:05] LABS: AMPHETAMINE SCREEN,URINE NEGATIVE (NEGATIVE); BENZODIAZEPINES SCREEN, URINE NEGATIVE (NEGATIVE); COCAINE SCREEN URINE NEGATIVE (NEGATIVE); METHAMPHETAMINES SCREEN, URINE NEGATIVE (NEGATIVE); OPIATE SCREEN, URINE NEGATIVE (NEGATIVE); THC CANNABINOID SCREEN, URINE NEGATIVE (NEGATIVE)
[2023-01-22 01:06] LABS: ACETAMINOPHEN < 10 ug/mL (10-30); BARBITURATE SCREEN,UR NEGATIVE (NEGATIVE); ETOH - ETHANOL < 5.0 mg/dL; METHADONE SCREEN, URINE NEGATIVE (NEGATIVE); OXYCODONE SCREEN, URINE NEGATIVE (NEGATIVE); PROPOXYPHENE SCREEN, URINE NEGATIVE (NEGATIVE); SALICYLATE < 6.0 mg/dL; TRICYCLIC ANTIDEPRESSANT,URINE NEGATIVE (NEGATIVE)
[2023-01-22 01:07] LABS: ALBUMIN 4.5 g/dL (3.2-5.5); ALBUMIN/GLOBULIN RATIO 1.5 (1.0-2.2); ALKALINE PHOSPHATASE 46 IU/L (42-121); ALT ALANINE AMINOTRANSFERASE 16 IU/L (10-60); AST ASPARTATE AMINOTRANSFERASE 20 IU/L (10-42); BILIRUBIN,TOTAL 0.9 mg/dL (0.2-1.0); BUN - BLOOD UREA NITROGEN 7 mg/dL (6-20); CALCIUM 9.3 mg/dL (8.5-10.3); CARBON DIOXIDE - CO2 27 mmol/L (21-32); CHLORIDE 108 mmol/L (101-111); CREATININE 0.5 mg/dL (0.4-1.0); GFR - MDRD 142 (>89); GLUCOSE 134 mg/dL (70-100); LIPASE 57 U/L (22-51); POTASSIUM 3.6 mmol/L (3.5-5.0); SODIUM 141 mmol/L (135-145); TOTAL PROTEIN 7.6 g/dL (6.7-8.2)
[2023-01-22] MEDS ORDERED: IBUPROFEN 400 MG TABLET PO STA (01:52)
[2023-01-22 07:56] LABS: HCG UR QUAL NEGATIVE
--- NOTE | 2023-01-22 08:59 | ED Physician Documentation ---
ED Addendum - Addendum Addendum: Patient signed out to me by overnight physician. Patient has been seen by the DCR overnight. Unclear yet what the recommendations are. Social work consult has been placed and social service liaison will follow-up with DCR this morning. DCR is working on petition to involuntarily detained patient. Patient has been accepted to [facility] in [facility]. Family has been here with her throughout the day. She has otherwise been calm and cooperative. Departure - Departure Disposition: 65 Psych Hosp/Unit DC/Xfer Clinical Impression: Depression, Suicidal ideation, Psychiatric symptoms, Marijuana use Condition: Serious Forms: Activity restrictions
[2023-01-22 15:39] VITALS: BP 116/73
== END 2023-01-22 16:45 ==
LOC: ED 23:30
DX: R45.851 Suicidal ideations (principal); F99 Mental disorder, not otherwise specified; F12.90 Cannabis use, unspecified, uncomplicated; Z78.1 Physical restraint status
CPT/HCPCS: 36415; 80053; 80306; 80307; 80320; 80329; 81001; 81003; 81025; 83690; 84443; 85025; 87086; 93005; 99285

== ENCOUNTER 2023-02-04 16:50 | Outpatient (CLI) | payer MEDICAID ==
[2023-02-04 17:30] LABS: THYROID STIMULATING HORMONE 0.59 uIU/mL (0.34-5.60)
[2023-02-04 17:36] LABS: PROLACTIN 5.38 ng/mL
== END 2023-02-04 16:51 | disposition home or self-care (01) ==
LOC: LAB 16:50
PROVIDERS: ATTEND Obstetrics & Gynecology
DX: N92.5 Other specified irregular menstruation (principal)
CPT/HCPCS: 36415; 82670; 84144; 84146; 84443

== ENCOUNTER 2023-02-06 15:47 | Emergency (ER) | payer MEDICAID ==
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
[2023-02-06 15:54] VITALS: BP 123/94
[2023-02-06 16:03] LABS: BASOPHILS % (AUTO) 0.4 %; EOSINOPHILS % (AUTO) 0.4 %; HCT - HEMATOCRIT 43.8 % (37.0-47.0); HGB - HEMOGLOBIN 14.4 g/dL (12.0-16.0); LYMPHOCYTES # (AUTO) 1.1 10^3/uL (1.5-3.5); MEAN CORPUSCULAR HEMOGLOBIN 29.8 pg (27.0-31.0); MEAN CORPUSCULAR HGB CONC 32.9 g/dL (32.0-36.0); MEAN CORPUSCULAR VOLUME 90.7 fL (81.0-99.0); MEAN PLATELET VOLUME 9.6 fL (7.9-10.8); MONOCYTES # (AUTO) 0.4 10^3/uL (0.0-1.0); MONOCYTES % (AUTO) 6.9 %; NEUTROPHILS # (AUTO) 4.2 10^3/uL (1.5-6.6); NEUTROPHILS % (AUTO) 72.9 %; PLT - PLATELET COUNT 241 10^3/uL (130-450); RED BLOOD COUNT 4.83 10^6/uL (4.20-5.40); RED CELL DISTRIBUTION WIDTH 12.6 % (12.0-15.0); WHITE BLOOD COUNT 5.7 x10^3/uL (4.8-10.8)
[2023-02-06 16:04] LABS: MUDS CUTOFF CONCENTRATIONS CUTOFF CONC BELOW:
[2023-02-06 16:09] LABS: BILIRUBIN,URINE NEGATIVE (NEGATIVE); GLUCOSE, URINE (UA) NEGATIVE (NEGATIVE); KETONES,URINE (UA) 15 mg/dL (NEGATIVE); LEUKOCYTE ESTERASE, URINE NEGATIVE (NEGATIVE); NITRITE,URINE NEGATIVE (NEGATIVE); OCCULT BLOOD,URINE NEGATIVE (NEGATIVE); PROTEIN,URINE NEGATIVE (NEGATIVE); UROBILINOGEN,URINE 0.2 (NORMAL) E.U./dL (NORMAL)
[2023-02-06 16:11] LABS: CLARITY,URINE CLEAR (CLEAR); HCG UR QUAL NEGATIVE
[2023-02-06 16:20] LABS: AMPHETAMINE SCREEN,URINE NEGATIVE (NEGATIVE); BARBITURATE SCREEN,UR NEGATIVE (NEGATIVE); BENZODIAZEPINES SCREEN, URINE NEGATIVE (NEGATIVE); COCAINE SCREEN URINE NEGATIVE (NEGATIVE); METHADONE SCREEN, URINE NEGATIVE (NEGATIVE); METHAMPHETAMINES SCREEN, URINE NEGATIVE (NEGATIVE); OPIATE SCREEN, URINE NEGATIVE (NEGATIVE); OXYCODONE SCREEN, URINE NEGATIVE (NEGATIVE); PROPOXYPHENE SCREEN, URINE NEGATIVE (NEGATIVE); THC CANNABINOID SCREEN, URINE NEGATIVE (NEGATIVE); TRICYCLIC ANTIDEPRESSANT,URINE NEGATIVE (NEGATIVE)
[2023-02-06 16:24] LABS: ACETAMINOPHEN < 10 ug/mL (10-30); ALBUMIN 4.6 g/dL (3.2-5.5); ALBUMIN/GLOBULIN RATIO 1.4 (1.0-2.2); ALKALINE PHOSPHATASE 71 IU/L (42-121); ALT ALANINE AMINOTRANSFERASE 17 IU/L (10-60); AST ASPARTATE AMINOTRANSFERASE 18 IU/L (10-42); BILIRUBIN,TOTAL 1.2 mg/dL (0.2-1.0); BUN - BLOOD UREA NITROGEN 10 mg/dL (6-20); CALCIUM 9.3 mg/dL (8.5-10.3); CARBON DIOXIDE - CO2 27 mmol/L (21-32); CHLORIDE 102 mmol/L (101-111); CREATININE 0.7 mg/dL (0.4-1.0); ETOH - ETHANOL < 5.0 mg/dL; GFR - MDRD 96 (>89); GLUCOSE 102 mg/dL (70-100); LIPASE 33 U/L (22-51); POTASSIUM 3.9 mmol/L (3.5-5.0); SALICYLATE < 6.0 mg/dL; SODIUM 140 mmol/L (135-145); TOTAL PROTEIN 7.9 g/dL (6.7-8.2)
== END 2023-02-06 23:18 ==
LOC: EDUNIT# → EDBD → ED 15:47
DX: F29 Unspecified psychosis not due to a substance or known physiological condition (principal); F22 Delusional disorders; Z20.822 Contact with and (suspected) exposure to COVID-19
CPT/HCPCS: 36415; 80053; 80306; 80307; 80320; 80329; 81001; 81003; 81025; 82550; 83690; 83735; 84443; 85025; 87086; 93005; 99285

== ENCOUNTER 2023-03-29 01:12 | Outpatient (CLI) | payer MEDICAID | END 2023-03-29 01:13 | disposition critical access hospital (66) | LOC: EMS 01:12 | DX: Z04.6 Encounter for general psychiatric examination, requested by authority (principal); R46.89 Other symptoms and signs involving appearance and behavior | CPT/HCPCS: A0425; A0429; A0999 ==

== ENCOUNTER 2023-03-29 01:38 | Emergency (ER) | payer MEDICAID ==
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
[2023-03-29 02:36] LABS: BASOPHILS % (AUTO) 0.3 %; EOSINOPHILS % (AUTO) 0.5 %; HCT - HEMATOCRIT 38.7 % (37.0-47.0); LYMPHOCYTES # (AUTO) 0.8 10^3/uL (1.5-3.5); MEAN CORPUSCULAR HGB CONC 33.6 g/dL (32.0-36.0); MEAN CORPUSCULAR VOLUME 89.2 fL (81.0-99.0); MEAN PLATELET VOLUME 10.2 fL (7.9-10.8); MONOCYTES # (AUTO) 0.3 10^3/uL (0.0-1.0); MONOCYTES % (AUTO) 4.8 %; NEUTROPHILS # (AUTO) 5.3 10^3/uL (1.5-6.6); NEUTROPHILS % (AUTO) 81.2 %; PLT - PLATELET COUNT 177 10^3/uL (130-450); RED BLOOD COUNT 4.34 10^6/uL (4.20-5.40); RED CELL DISTRIBUTION WIDTH 13.2 % (12.0-15.0); WHITE BLOOD COUNT 6.5 x10^3/uL (4.8-10.8)
[2023-03-29 02:52] LABS: ACETAMINOPHEN < 10 ug/mL (10-30); ALBUMIN 4.4 g/dL (3.2-5.5); ALBUMIN/GLOBULIN RATIO 1.5 (1.0-2.2); ALKALINE PHOSPHATASE 46 IU/L (42-121); ALT ALANINE AMINOTRANSFERASE 18 IU/L (10-60); AST ASPARTATE AMINOTRANSFERASE 17 IU/L (10-42); BILIRUBIN,TOTAL 0.8 mg/dL (0.2-1.0); BUN - BLOOD UREA NITROGEN 9 mg/dL (6-20); CARBON DIOXIDE - CO2 24 mmol/L (21-32); CHLORIDE 108 mmol/L (101-111); CK- CREATINE KINASE 43 IU/L (22-269); CREATININE 0.8 mg/dL (0.4-1.0); ETOH - ETHANOL < 5.0 mg/dL; GFR - MDRD 83 (>89); GLUCOSE 105 mg/dL (70-100); LIPASE 39 U/L (22-51); MAGNESIUM 1.8 mg/dL (1.7-2.8); POTASSIUM 3.9 mmol/L (3.5-5.0); SALICYLATE < 6.0 mg/dL; SODIUM 140 mmol/L (135-145); TOTAL PROTEIN 7.4 g/dL (6.7-8.2)
[2023-03-29 04:26] LABS: MUDS CUTOFF CONCENTRATIONS CUTOFF CONC BELOW:
[2023-03-29 04:27] LABS: BILIRUBIN,URINE NEGATIVE (NEGATIVE); GLUCOSE, URINE (UA) NEGATIVE (NEGATIVE); KETONES,URINE (UA) 15 mg/dL (NEGATIVE); LEUKOCYTE ESTERASE, URINE MODERATE (NEGATIVE); NITRITE,URINE NEGATIVE (NEGATIVE); OCCULT BLOOD,URINE NEGATIVE (NEGATIVE); PH,URINE 6.5 PH (5.0-7.5); PROTEIN,URINE NEGATIVE (NEGATIVE); UROBILINOGEN,URINE 0.2 (NORMAL) E.U./dL (NORMAL)
[2023-03-29 04:30] LABS: CLARITY,URINE HAZY (CLEAR); HCG UR QUAL NEGATIVE
[2023-03-29 04:41] LABS: BACTERIA,URINE Few /HPF (None Seen); COCAINE SCREEN URINE NEGATIVE (NEGATIVE); METHAMPHETAMINES SCREEN, URINE NEGATIVE (NEGATIVE); MUCUS,URINE Few Strands; OPIATE SCREEN, URINE NEGATIVE (NEGATIVE); RBC,URINE 0-5 /HPF (0-5); SQUAMOUS EPITHELIAL CELL,UR MOD Squamous (<= Few); THC CANNABINOID SCREEN, URINE POSITIVE (NEGATIVE)
[2023-03-29 04:42] LABS: AMPHETAMINE SCREEN,URINE NEGATIVE (NEGATIVE); BARBITURATE SCREEN,UR NEGATIVE (NEGATIVE); BENZODIAZEPINES SCREEN, URINE NEGATIVE (NEGATIVE); METHADONE SCREEN, URINE NEGATIVE (NEGATIVE); OXYCODONE SCREEN, URINE NEGATIVE (NEGATIVE); PROPOXYPHENE SCREEN, URINE NEGATIVE (NEGATIVE); TRICYCLIC ANTIDEPRESSANT,URINE NEGATIVE (NEGATIVE)
--- NOTE | 2023-03-29 09:25 | ED Physician Documentation ---
Restraint [id number] - Immediate Situation Face to Face Evaluation Date: 03/29/23 Face to Face Evaluation Time: : Restraint Classification: Violent, seclusion Restraint Type: Seclusion - Patient's Reaction & Behaviors Safety: Unable to Follow Commands (she is not verbally interacting and seems to want to go to door. Unable to follow direction and flight risk. ) Harm: Potential harm to self Physical: Beating on the door/wall (she did hit head on wall during initial DCR tablet consult.) Other: Resting quietly (otherwise she is sitting still on the bed) - Behavioral Condition Attitude: Guarded Behavior: Withdrawn Orientation: Non-responsive Mood: Other (flat) - Evaluation Review of Systems: see H+P Pertinent History/Illicit Drugs/Medications/Results: reported hypoactive manic symptoms - Plan Need to Continue or Terminate Violent or Chemical Restraint: further evaluation by DCR.
[2023-03-29 09:39] VITALS: BP 101/65
--- NOTE | 2023-03-29 11:40 | ED Physician Documentation ---
ED Addendum - Addendum Addendum: 03/29/23 11:37 Signed out to me on change of shift was the patient was not verbally interacting well and reticent to converse. The DCR did interview her by tablets and did not get a lot of information at that time which was a proximately 630 or 7 this morning. The DCR contact the patient's support group which I believe includes her brother with whom she is living or they are with her. The DCR then interviewed the patient again approximately 10 AM and was getting good verbal interaction. The DCR Graciela arranged a safety plan with the patient and her brother and felt comfortable the patient to be discharged at this time and did not feel the patient was detainable. The patient has been calm and is now interactive. She was conversant. Her support group is here and is able to pick her up and take her home and comfortable with this. Diagnoses: Schizoaffective symptoms with hypoactive features. Disposition: The patient discharged home in stable condition.
== END 2023-03-29 11:39 | disposition home or self-care (01) ==
LOC: EDUNIT# → ED 01:38
DX: F25.8 Other schizoaffective disorders (principal); Z20.822 Contact with and (suspected) exposure to COVID-19
CPT/HCPCS: 36415; 80053; 80306; 80307; 80320; 80329; 81001; 81003; 81025; 82550; 83690; 83735; 84443; 85025; 87086; 99284; 99285

== ENCOUNTER 2023-04-30 09:36 | Outpatient (CLI) | payer MEDICAID | END 2023-04-30 23:59 | disposition EMS.NT | LOC: EMS 09:36 | DX: Z03.89 Encounter for observation for other suspected diseases and conditions ruled out (principal) ==